=== PATIENT | male | born 1945 | race Caucasian/White ===

== ENCOUNTER 2017-08-22 16:29 | Emergency (ER) | payer MEDICARE, BC ==
--- NOTE | 2017-08-22 17:27 | EDM.PDOC ---
ED HPI GENERAL MEDICAL PROBLEM - General Chief Complaint: Cardiovascular Problem Stated Complaint: BLOOD PRESSURE HIGH Time Seen by Provider: 08/22/17 16:36 Source of Information: Reports: Patient History Limitations: Reports: No Limitations - History of Present Illness INITIAL COMMENTS - FREE TEXT/NARRATIVE: 72 y/o M with hx HTN and a-fib presents with high BP. States it was high at his cardiology appointment about 5 days ago, was 160's systolic at that time. His provider instructed him to keep a log and call her for medication adjustments if it continued to be high. Today had a reading of 200 systolic and was concerned so came here. No additional symptoms. Compliant with his many meds, which include diltiazem, HCTZ, doxazosin, and lisinopril. No recent changes. no chest pain, shortness of breath, lower extremity swelling, urinary problems, or any other complaint. No headache or confusion or weakness. - Related Data Allergies Allergy/AdvReac Type Severity Reaction Status Date / Time metronidazole [From Flagyl] Allergy Cannot Verified 08/22/17 16:54 Remember fosinopril sodium AdvReac Cough Verified 08/22/17 16:54 [From Monopril] Home Meds: Home Meds Cholecalciferol (Vitamin D3) [Vitamin D3] 1,000 unit PO DAILY 06/26/14 [History] Doxazosin Mesylate [Cardura] 1 mg PO BEDTIME 06/26/14 [History] Hydrochlorothiazide 25 mg PO DAILY 06/26/14 [History] Lisinopril 20 mg PO BID 06/26/14 [History] Lutein 6 mg PO DAILY 06/26/14 [History] Warfarin [Coumadin] 10 mg PO SUTUWETHSA 06/26/14 [History] Warfarin [Coumadin] 15 mg PO MOFR 06/26/14 [History] atorvaSTATin [Lipitor] 40 mg PO BEDTIME 06/26/14 [History] metFORMIN HCl [Metformin HCl ER] 1,000 mg PO BID 06/26/14 [History] Diltiazem HCl [Cardizem] 120 mg PO DAILY 04/30/15 [History] Past Medical History Other HEENT History: glasses Cardiovascular History: Reports: High Cholesterol, Hypertension Other Cardiovascular History: left leg edema, cardiac cath Respiratory History: Reports: Sleep Apnea Other Genitourinary History: proteinuria, hyperuricemia, BPH Other Hematologic History: belkis positive - Past Surgical History Other GI Surgeries/Procedures: colon polyps Other Male Surgeries/Procedures: cystoscopy Social & Family History - Tobacco Use Smoking Status *Q: Unknown Ever Smoked Years of Tobacco use: 13 Used Tobacco, but Quit: Yes Month/Year Tobacco Last Used: 30 years ago - Alcohol Use Days Per Week of Alcohol Use: 7 Number of Drinks Per Day: 2 Total Drinks Per Week: 14 - Recreational Drug Use Recreational Drug Use: No Drug Use in Last 12 Months: No ED ROS GENERAL - Review of Systems Review Of Systems: See Below Constitutional: Denies: Fever Respiratory: Denies: Shortness of Breath Cardiovascular: Denies: Chest Pain GI/Abdominal: Denies: Abdominal Pain Neurological: Denies: Confusion, Headache ED EXAM, GENERAL - Physical Exam Exam: See Below Exam Limited By: No Limitations General Appearance: Alert, WD/WN, No Apparent Distress Eye Exam: Bilateral Eye: Normal Inspection Nose: Normal Inspection Throat/Mouth: Normal Inspection, Normal Voice Head: Atraumatic, Normocephalic Neck: Normal Inspection, Supple Respiratory/Chest: No Respiratory Distress, Lungs Clear, Normal Breath Sounds, No Accessory Muscle Use Cardiovascular: Normal Peripheral Pulses, No Edema, No Gallop, No Murmur, Irregularly Irregular GI/Abdominal: Soft, Non-Tender, No Distention Back Exam: Normal Inspection Extremities: Normal Inspection. No: Pedal Edema Neurological: Alert, Oriented, Normal Cognition, No Motor/Sensory Deficits Psychiatric: Normal Affect, Normal Mood Skin Exam: Warm, Dry, Intact, Normal Color, No Rash Course - Vital Signs Last Recorded V/S: Last Vital Signs Temp 35.8 C 08/22/17 16:54 Pulse 50 L 08/22/17 16:54 Resp 20 08/22/17 16:54 BP 208/97 H 08/22/17 16:54 Pulse Ox 97 08/22/17 16:54 - Orders/Labs/Meds Orders: Active Orders 24 hr Category Date Time Status EKG Documentation Completion [RC] ASDIRECTED Care 08/22/17 17:10 Active EKG 12 Lead [EK] Stat Ther 08/22/17 17:10 Ordered - Re-Assessments/Exams Free Text/Narrative Re-Assessment/Exam: 08/22/17 17:50 Asymptomatic HTN detected on home monitoring, confirmed here with SBP 190-200' s. Already on 4 meds. Has room to increase doxazosin so will increase this to 2 mg. Advised him to call his tea blender in the morning for further medication adjustments. Discussed return precautions. Departure - Departure Time of Disposition: 17:26 Disposition: Home, Self-Care 01 Clinical Impression: Hypertension Qualifiers: Hypertension type: unspecified Qualified Code(s): I10 - Essential (primary) hypertension Instructions: Hypertension Referrals: Tabatha Rivera MD [Primary Care Provider] - Forms: ED Department Discharge Additional Instructions: 1. Increase doxazosin to 2mg daily. 2. Follow up with your tea blender tomorrow for further medication recommendations 3. Return to the ED if you have: - chest pain - difficult breathing - severe headache - confusion or weakness - any other concerning symptoms - My Orders Last 24 Hours: My Active Orders 08/22/17 17:10 EKG Documentation Completion [RC] ASDIRECTED EKG 12 Lead [EK] Stat - Assessment/Plan Last 24 Hours: My Active Orders 08/22/17 17:10 EKG Documentation Completion [RC] ASDIRECTED EKG 12 Lead [EK] Stat
[2017-08-22 17:51] VITALS: BP 151/85
== END 2017-08-22 17:35 | disposition home or self-care (01) ==
LOC: JD.ED 16:29
DX: I10 Essential (primary) hypertension (principal); I48.91 Unspecified atrial fibrillation; E78.00 Pure hypercholesterolemia, unspecified; Z87.891 Personal history of nicotine dependence; Z79.01 Long term (current) use of anticoagulants; Z79.899 Other long term (current) drug therapy; Z88.1 Allergy status to other antibiotic agents; Z88.8 Allergy status to other drugs, medicaments and biological substances
CPT/HCPCS: 93005; 93010; 99283-25; 99284-25

== ENCOUNTER 2018-01-25 06:47 | Day surgery (SDC) | payer MEDICARE, BC ==
[~2018-01-25 06:47] MED LIST: Lactated Ringers 1,000 ML IV SCH; Lidocaine 1%/Sod Bicarbonate in NS 8.4% 1 ML Syringe IDERM PRN; Sodium Chloride 0.9% 10 ML Syringe FLUSH PRN
--- NOTE | 2018-01-25 07:38 | PCM.PREANE ---
Preanesthetic Assessment - Procedure Proposed Procedure: Diagnostic EGD/Colonoscopy - Anesthesia/Transfusion/Family Hx Anesthesia History: Prior Anesthesia Without Reaction Family History of Anesthesia Reaction: No Transfusion History: Prior Transfusion Without Reaction - Review of Systems General: No Symptoms Pulmonary: Shortness of Breath (when hemaglobin was 6.8, ), Other (MARIANGEL with CPAP ) Cardiovascular: Other (Afib on chronic anticoagulation , Aortic stenosis, HTN, EF 55-60%, cardiac stent 2010, ) Neurological: No Symptoms Other: Reports: Easy Bleeding (on coumadin ), Easy Bruising, Diabetes (on oral medication ) - Physical Assessment NPO Status Date: 01/24/18 NPO Status Time: 23:30 O2 Sat by Pulse Oximetry: 98 Respiratory Rate: 20 Vital Signs: Last Vital Signs Temp 36.7 C 01/25/18 06:55 Pulse 70 01/25/18 06:55 Resp 20 01/25/18 06:55 BP 164/73 H 01/25/18 06:55 Pulse Ox 98 01/25/18 06:55 Height: 1.73 m Weight: 121.109 kg ASA Class: 2 Mental Status: Alert & Oriented x3 Airway Class: Mallampati = 3 Dentition: Reports: Broken Tooth/Teeth (has a few chipped and missing teeth ) Thyro-Mental Finger Breadths: 3 Mouth Opening Finger Breadths: 3 ROM/Head Extension: Full Lungs: Clear to Auscultation, Normal Respiratory Effort Cardiovascular: Regular Rate, Irregular Rhythm, Murmurs - Allergies Allergies/Adverse Reactions: Allergies Allergy/AdvReac Type Severity Reaction Status Date / Time metronidazole [From Flagyl] Allergy Cannot Verified 01/24/18 14:56 Remember fosinopril sodium AdvReac Cough Verified 01/24/18 14:56 [From Monopril] - Blood Blood Available: No Product(s) Available: None - Anesthesia Plan Pre-Op Medication Ordered: None - Acknowledgements Anesthesia Type Planned: MAC Pt an Appropriate Candidate for the Planned Anesthesia: Yes Alternatives and Risks of Anesthesia Discussed w Pt/Guardian: Yes Pt/Guardian Understands and Agrees with Anesthesia Plan: Yes PreAnesthesia Questionnaire HEENT History: Reports: Impaired Vision Other HEENT History: glasses Cardiovascular History: Reports: Afib, High Cholesterol, Hypertension Other Cardiovascular History: aortic stenosis, stenosis Respiratory History: Reports: Sleep Apnea Gastrointestinal History: Reports: Colon Polyp Other Genitourinary History: proteinuria, hyperuricemia, BPH GRIP WRAPPER History: Reports: None Musculoskeletal History: Reports: None Neurological History: Reports: None Psychiatric History: Reports: None Endocrine/Metabolic History: Reports: Diabetes, Type II, Obesity/BMI 30+ Hematologic History: Reports: Anemia, Iron Deficiency Other Hematologic History: belkis positive Immunologic History: Reports: None Oncologic (Cancer) History: Reports: None Dermatologic History: Reports: None - Past Surgical History Head Surgeries/Procedures: Reports: None HEENT Surgical History: Reports: Cataract Surgery Cardiovascular Surgical History: Reports: None Respiratory Surgical History: Reports: None GI Surgical History: Reports: Colonoscopy Other GI Surgeries/Procedures: colon polyps Male Surgical History: Reports: Other (See Below) Other Male Surgeries/Procedures: cystoscopy Endocrine Surgical History: Reports: None Neurological Surgical History: Reports: None Musculoskeletal Surgical History: Reports: None Oncologic Surgical History: Reports: None Dermatological Surgical History: Reports: None - SUBSTANCE USE Smoking Status *Q: Former Smoker (quit 41 years ago) Days Per Week of Alcohol Use: 7 Number of Drinks Per Day: 2 Total Drinks Per Week: 14 Recreational Drug Use History: No - HOME MEDS Home Medications: Home Meds Cholecalciferol (Vitamin D3) [Vitamin D3] 1,000 unit PO DAILY 06/26/14 [History] Doxazosin Mesylate [Cardura] 4 mg PO DAILY 06/26/14 [History] Lisinopril 20 mg PO BID 06/26/14 [History] Lutein 6 mg PO DAILY 06/26/14 [History] Warfarin [Coumadin] 7.5 mg PO FR 06/26/14 [History] Warfarin [Coumadin] 10 mg PO SUMOTUWETHSA 06/26/14 [History] atorvaSTATin [Lipitor] 40 mg PO BEDTIME 06/26/14 [History] hydroCHLOROthiazide [Hydrochlorothiazide] 25 mg PO DAILY 06/26/14 [History] metFORMIN HCl [Metformin HCl ER] 1,000 mg PO BID 06/26/14 [History] Diltiazem HCl [Cardizem] 240 mg PO DAILY 04/30/15 [History] - CURRENT (IN HOUSE) MEDS Current Meds: Current Medications Lactated Ringer's (Ringers, Lactated) 1,000 mls @ 125 mls/hr IV ASDIRECTED [facility] Last Admin: 01/25/18 07:10 Dose: 125 mls/hr Lidocaine/Sodium Bicarbonate (Buffered Lidocaine 1% In Ns 8.4%) 0.25 ml IDERM ONETIME PRN PRN Reason: Prior to IV Start Last Admin: 01/25/18 07:10 Dose: 0.25 ml Sodium Chloride (Saline Flush) 10 ml FLUSH ASDIRECTED PRN PRN Reason: Keep Vein Open
[2018-01-25] MEDS ORDERED: Propofol 200 MG/20 ML SDV ONE (08:09)
[2018-01-25] MEDS ORDERED: fentaNYL 100 MCG/2 ML SDV ONE (08:09)
[2018-01-25] MEDS ORDERED: Lidocaine 1% 4 ML ONE (08:11)
--- NOTE | 2018-01-25 08:51 | PCM.OPNOTE ---
- General Post-Op/Procedure Note Date of Surgery/Procedure: 01/25/18 Operative Procedure(s): egd/colonoscopy Pre Op Diagnosis: iron deficiency anemia Post-Op Diagnosis: Same Anesthesia Technique: MAC Primary Surgeon: Kilo Haq EBL in mLs: 0 Complications: None Condition: Good
--- NOTE | 2018-01-25 08:52 | PCM48HPAN ---
Post Anesthesia Note - EVALUATION WITHIN 48HRS OF ANESTHETIC Vital Signs in Normal Range: Yes Patient Participated in Evaluation: Yes Respiratory Function Stable: Yes Airway Patent: Yes Cardiovascular Function Stable: Yes Hydration Status Stable: Yes Pain Control Satisfactory: Yes Nausea and Vomiting Control Satisfactory: Yes Mental Status Recovered: Yes Pulse Rate: 84 SaO2: 96 Resp Rate: 20 Temperature: 36.7 C Blood Pressure: 158/95
[2018-01-25 08:53] VITALS: BP 158/95
--- NOTE | 2018-01-25 12:54 | OR ---
DATE OF OPERATION: 01/25/2018 SURGEON: Kilo Haq MD PREOPERATIVE DIAGNOSIS: Iron deficiency anemia. POSTOPERATIVE DIAGNOSIS: Iron deficiency anemia. OPERATION PERFORMED: Colonoscopy to cecum. FINDINGS: Normal study. No recommendations for followup colonoscopy. ANESTHESIA: Done under IV sedation. DESCRIPTION OF PROCEDURE: The patient having been taken to the endoscopy room, connected to monitoring equipment, and given IV sedation for upper GI endoscopy, IV sedation was continued for colonoscopy. He was placed in left lateral position. Perianal area was inspected and showed some old hemorrhoidal tags. Examination of the anal area did not show any pathology. Rectal exam showed good sphincter tone. A video Olympus colonoscope was introduced into the rectum and threaded up without problem to the cecum, where the appendicular orifice was noted. The ileum was noted, and the tip of the scope was placed in the ileum and was normal. Prep was excellent. [place] cleansing score grade A. The scope was slowly withdrawn showing the cecum, ascending colon, transverse colon, descending colon, sigmoid colon, and rectum. Retroflexed view did show some internal hemorrhoids. There were no angiodysplasias, neoplasias, large tumor masses, ulcerations, or diverticulum noted. The patient tolerated the procedure, was sent to recovery room in a stable condition, and will be followed up with Dr. Rivera. ESTIMATED BLOOD LOSS: MMODAL /[id number]
--- NOTE | 2018-01-25 12:58 | OR ---
DATE OF OPERATION: 01/25/2018 SURGEON: Kilo Haq MD PREOPERATIVE DIAGNOSIS: Iron deficiency anemia. POSTOPERATIVE DIAGNOSIS: Iron deficiency anemia. OPERATION PERFORMED: Esophagogastroduodenoscopy. FINDINGS: A normal study. ANESTHESIA: Procedure done under IV sedation. DESCRIPTION OF PROCEDURE: The patient was taken to the endoscopy room, connected to monitoring equipment, given IV sedation, and placed in left lateral position. Bite block was inserted and video Olympus gastroscope placed in the posterior oropharynx, under direct vision, threaded past the cricopharyngeus, down the esophagus and into the stomach. The stomach was insufflated, and the scope was passed through the pylorus to the second portion of the duodenum, and it was slowly withdrawn showing a normal second portion of the duodenum, duodenal bulb, and pyloric channel. Antrum, body, and cardia of the stomach were unremarkable. No acute disease. J-maneuver showed good fundus and cardia. Hiatus was intact. GE junction was located at 45 cm. Scope was withdrawn to this area and viewed, and no acute pathology noted at the GE junction. Z-line was sharp. Rest of the esophagus was viewed as the scope was withdrawn and was normal. The patient tolerated the procedure. IV sedation will be continued for colonoscopy. ESTIMATED BLOOD LOSS: MMODAL /[id number]
== END 2018-01-25 09:20 | disposition home or self-care (01) ==
LOC: JD.SDS 06:47
PROVIDERS: ATTEND Surgery
DX: D50.9 Iron deficiency anemia, unspecified (principal); K64.8 Other hemorrhoids; I48.1 Persistent atrial fibrillation; I10 Essential (primary) hypertension; I35.0 Nonrheumatic aortic (valve) stenosis; E11.9 Type 2 diabetes mellitus without complications; E78.5 Hyperlipidemia, unspecified; E78.2 Mixed hyperlipidemia; E66.01 Morbid (severe) obesity due to excess calories; Z68.41 Body mass index [BMI] 40.0-44.9, adult; R80.9 Proteinuria, unspecified; Z79.01 Long term (current) use of anticoagulants; Z79.84 Long term (current) use of oral hypoglycemic drugs; Z79.899 Other long term (current) drug therapy; Z88.1 Allergy status to other antibiotic agents; Z88.8 Allergy status to other drugs, medicaments and biological substances; Z98.890 Other specified postprocedural states; Z87.891 Personal history of nicotine dependence; G47.30 Sleep apnea, unspecified
CPT/HCPCS: 36415; 43235; 45378; 80048; 85610; J2704; J3010; J7120; J2001

== ENCOUNTER 2018-02-05 11:03 | Emergency (ER) | payer MEDICARE, BC ==
--- NOTE | 2018-02-05 11:45 | EDM.PDOC ---
ED HPI GENERAL MEDICAL PROBLEM - General Chief Complaint: Lower Extremity Injury/Pain Stated Complaint: L ANKLE INJURY Time Seen by Provider: 02/05/18 11:24 Source of Information: Reports: Patient History Limitations: Reports: No Limitations - History of Present Illness INITIAL COMMENTS - FREE TEXT/NARRATIVE: Patient is a 72-year-old male presents ED complaining of swelling and pain to the left foot and ankle. Patient states this past Monday while working in the garden he believes he may twisted his ankle/foot. States with weightbearing he had increasing pain along the sole of his foot. He did apply ice to the affected area that has since improved to discomfort but the swelling remains. He still has discomfort with weightbearing and utilizes a walker to ambulate. He does have a history of diabetes but denies any history of neuropathy. He has not taken any ibuprofen or Tylenol for discomfort. Nor has he been elevating the affected extremity to reduce any swelling and pain. No pain noted to the proximal tib/fib and also knee. He did not fall when this occurred. Patient is a history of age or fibrillation, hypercholesterolemia, hypertension , aortic stenosis, sleep apnea, BPH, type 2 diabetes, anemia. Patient's currently on vitamin D3, Cardura, lisinopril, Lipitor, hydrochlorothiazide, metformin, and diltiazem Left Ankle Pain Score (Numeric/FACES): 8 - Related Data Allergies Allergy/AdvReac Type Severity Reaction Status Date / Time metronidazole [From Flagyl] Allergy Cannot Verified 02/05/18 11:22 Remember fosinopril sodium AdvReac Cough Verified 02/05/18 11:22 [From Monopril] Home Meds: Home Meds Cholecalciferol (Vitamin D3) [Vitamin D3] 1,000 unit PO DAILY 06/26/14 [History] Doxazosin Mesylate [Cardura] 4 mg PO DAILY 06/26/14 [History] Lisinopril 20 mg PO BID 06/26/14 [History] Lutein 6 mg PO DAILY 06/26/14 [History] Warfarin [Coumadin] 10 mg PO DAILY 06/26/14 [History] atorvaSTATin [Lipitor] 40 mg PO BEDTIME 06/26/14 [History] hydroCHLOROthiazide [Hydrochlorothiazide] 25 mg PO DAILY 06/26/14 [History] metFORMIN HCl [Metformin HCl ER] 1,000 mg PO BID 06/26/14 [History] Diltiazem HCl [Cardizem] 240 mg PO DAILY 04/30/15 [History] Past Medical History HEENT History: Reports: Impaired Vision Other HEENT History: glasses Cardiovascular History: Reports: Afib, High Cholesterol, Hypertension Other Cardiovascular History: aortic stenosis, stenosis Respiratory History: Reports: Sleep Apnea Gastrointestinal History: Reports: Colon Polyp Other Genitourinary History: proteinuria, hyperuricemia, BPH CATTLE KNOCKER History: Reports: None Musculoskeletal History: Reports: None Neurological History: Reports: None Psychiatric History: Reports: None Endocrine/Metabolic History: Reports: Diabetes, Type II, Obesity/BMI 30+ Hematologic History: Reports: Anemia, Iron Deficiency Other Hematologic History: belkis positive Immunologic History: Reports: None Oncologic (Cancer) History: Reports: None Dermatologic History: Reports: None - Past Surgical History Head Surgeries/Procedures: Reports: None HEENT Surgical History: Reports: Cataract Surgery Cardiovascular Surgical History: Reports: None Respiratory Surgical History: Reports: None GI Surgical History: Reports: Colonoscopy Other GI Surgeries/Procedures: colon polyps Male Surgical History: Reports: Other (See Below) Other Male Surgeries/Procedures: cystoscopy Endocrine Surgical History: Reports: None Neurological Surgical History: Reports: None Musculoskeletal Surgical History: Reports: None Oncologic Surgical History: Reports: None Dermatological Surgical History: Reports: None Social & Family History - Tobacco Use Smoking Status *Q: Never Smoker - Caffeine Use Caffeine Use: Reports: Coffee Other Caffeine Use: decaf - Recreational Drug Use Recreational Drug Use: No Review of Systems - Review of Systems Review Of Systems: ROS reveals no pertinent complaints other than HPI. ED EXAM, GENERAL - Physical Exam Exam: See Below Exam Limited By: No Limitations General Appearance: Alert, WD/WN, No Apparent Distress Ears: Hearing Grossly Normal Nose: Normal Inspection Throat/Mouth: Normal Voice, No Airway Compromise Neck: Normal Inspection, Supple Respiratory/Chest: No Respiratory Distress, No Accessory Muscle Use Cardiovascular: Normal Peripheral Pulses, Regular Rate, Rhythm Peripheral Pulses: 1+: Posterior Tibial (L), Dorsalis Pedis (L) Extremities: Other (Patient has swelling noted to the dorsal aspect of left foot and also medial/lateral aspect of the ankle. Pain with palpation along the base of the left lateral malleolus and along the fourth and fifth metatarsal. Patient did have a compression wrap on it with admission removed with some slight irritation noted along the medial aspect of the foot and also along the anterior distal third of the tibia from where the compression stocking was rubbing. No findings concerning for infection. No increased warmth. No open sores present. No sensory/motor deficits. Patient with ambulation in the ED was able to weight-bear with discomfort noted) Neurological: Alert, Oriented, CN II-XII Intact, Normal Cognition, No Motor/ Sensory Deficits. No: Normal Gait Psychiatric: Normal Affect, Normal Mood Skin Exam: Warm, Dry, Intact Course - Vital Signs Last Recorded V/S: Last Vital Signs Temp 98.5 F 02/05/18 11:18 Pulse 81 02/05/18 11:18 Resp 18 02/05/18 11:18 BP 165/92 H 02/05/18 11:18 Pulse Ox 98 02/05/18 11:18 - Re-Assessments/Exams Free Text/Narrative Re-Assessment/Exam: X-ray of the left ankle and foot obtained. Xray of the left foot/ankle reviewed with Dr. Amato with questionable fracture to the base of the 3rd metatarsal. Suggested having Dr. Kirk provide final interpretation. Final interpretation: No acute bony abdomen abnormalities noted to the left foot and ankle. Walking boot has been applied. Discharge instructions as documented. The patient remained hemodynamically stable while under my care in the E.D. I discussed the concerning symptoms for which to return to the E.D. with the patient/family. The patient/family verbalized understanding. All questions were answered. Departure - Departure Time of Disposition: 13:07 Disposition: Home, Self-Care 01 Condition: Good Clinical Impression: Ankle sprain Qualifiers: Encounter type: initial encounter Involved ligament of ankle: unspecified ligament Laterality: left Qualified Code(s): S93.402A - Sprain of unspecified ligament of left ankle, initial encounter Sprain of foot, left Qualifiers: Encounter type: initial encounter Qualified Code(s): S93.602A - Unspecified sprain of left foot, initial encounter - Discharge Information Instructions: Ankle Sprain, [id number], Foot Sprain, Walking Boot, Adult Referrals: Tabatha Rivera MD [Primary Care Provider] - Forms: ED Department Discharge Additional Instructions: You are to be nonweightbearing toe-touch only for balance in the next 3-5 days. Advance weight as tolerated thereafter. Utilize crutches or walker to ambulate. Elevate when able to reduce any swelling and pain. Apply ice to affected area to reduce any swelling and pain 3 times a day, 20 minutes in duration, do not apply ice directly on the skin. Please follow up with orthopedic surgeon of your choice in 10-14 days if swelling and pain persists. Call and make an appointment. Return to the ED if he developed any new or worsening symptoms. Utilize Tylenol and ibuprofen in alternating fashion for pain.
--- NOTE | 2018-02-05 12:55 | CR ---
Left ankle: 4 views of the left ankle were obtained. Comparison: No previous study. Diffuse soft tissue swelling is seen. Plantar spur and vascular calcification is noted. Ankle mortise is symmetric. No acute fracture or other bony abnormality is seen. Impression: 1. Incidental findings as noted above. No acute bony abnormality is appreciated. Diagnostic code #3
--- NOTE | 2018-02-05 12:56 | CR ---
Left foot: 4 views left foot were obtained. Comparison: No previous day. Diffuse soft tissue swelling is seen. Plantar spur and vascular calcification is noted. No acute fracture or other bony abnormality is seen. Impression: 1. Findings as noted above. No acute bony abnormality is identified. Diagnostic code #2
[2018-02-05 13:19] VITALS: BP 148/74
== END 2018-02-05 13:15 | disposition home or self-care (01) ==
LOC: JD.ED 11:03
DX: S93.402A Sprain of unspecified ligament of left ankle, initial encounter (principal); S93.602A Unspecified sprain of left foot, initial encounter; E11.9 Type 2 diabetes mellitus without complications; I48.91 Unspecified atrial fibrillation; E78.00 Pure hypercholesterolemia, unspecified; I10 Essential (primary) hypertension; D50.9 Iron deficiency anemia, unspecified; Z79.899 Other long term (current) drug therapy; Z79.01 Long term (current) use of anticoagulants; Z88.8 Allergy status to other drugs, medicaments and biological substances; X50.1XXA Overexertion from prolonged static or awkward postures, initial encounter
CPT/HCPCS: 73610-26-LT; 73610-LT; 73630-26-LT; 73630-LT; 99283; 99284

== ENCOUNTER 2019-06-30 10:18 | Emergency (ER) | payer MEDICARE, BC ==
[2019-06-30 10:30] VITALS: BP 162/81; PULSE 63
--- NOTE | 2019-06-30 10:43 | EDM.PDOC ---
ED HPI GENERAL MEDICAL PROBLEM - General Chief Complaint: Lower Extremity Injury/Pain Stated Complaint: RIGHT KNEE PAIN Time Seen by Provider: 06/30/19 10:30 Source of Information: Reports: Patient History Limitations: Reports: No Limitations - History of Present Illness INITIAL COMMENTS - FREE TEXT/NARRATIVE: A 73-year-old male who presents with complaints of right knee pain and swelling for the last week. He has no known injury to the knee. He states the pain has been getting progressively worse. Initially the pain was only present when he would go from a sitting to standing position, however it is now consistently painful. Patient does have a history of gout, however states his last flare was probably about 20 years ago. When asked to localize the pain, he points to the anterior surface below the kneecap. Denies fever, chills, nausea, or vomiting. Right Knee Pain Score (Numeric/FACES): 10 - Related Data Allergies Allergy/AdvReac Type Severity Reaction Status Date / Time metronidazole [From Flagyl] Allergy Cannot Verified 06/30/19 10:30 Remember fosinopril sodium AdvReac Cough Verified 06/30/19 10:30 [From Monopril] Home Meds: Home Meds Cholecalciferol (Vitamin D3) [Vitamin D3] 1,000 unit PO DAILY 06/26/14 [History] Doxazosin Mesylate [Cardura] 4 mg PO DAILY 06/26/14 [History] Lisinopril 20 mg PO BID 06/26/14 [History] Lutein 20 mg PO DAILY 06/26/14 [History] Warfarin [Coumadin] 10 mg PO DAILY 06/26/14 [History] atorvaSTATin [Lipitor] 40 mg PO BEDTIME 06/26/14 [History] Diltiazem HCl [Cardizem] 240 mg PO DAILY 04/30/15 [History] Ferrous Sulfate [High Potency Iron] 134 mg PO DAILY 06/30/19 [History] Furosemide [Lasix] 20 mg PO DAILY 06/30/19 [History] glipiZIDE [Glucotrol XL] 5 mg PO DAILY 06/30/19 [History] predniSONE [Prednisone] 20 mg PO ASDIRECTED #14 tablet 06/30/19 [Rx] Past Medical History HEENT History: Reports: Impaired Vision Other HEENT History: glasses Cardiovascular History: Reports: Afib, High Cholesterol, Hypertension Other Cardiovascular History: aortic stenosis, stenosis Respiratory History: Reports: Sleep Apnea Gastrointestinal History: Reports: Colon Polyp Other Genitourinary History: proteinuria, hyperuricemia, BPH PRIVATE INVESTIGATOR SURVEILLANCE History: Reports: None Musculoskeletal History: Reports: Gout Neurological History: Reports: None Psychiatric History: Reports: None Endocrine/Metabolic History: Reports: Diabetes, Type II, Obesity/BMI 30+ Hematologic History: Reports: Anemia, Iron Deficiency Other Hematologic History: belkis positive Immunologic History: Reports: None Oncologic (Cancer) History: Reports: None Dermatologic History: Reports: None - Past Surgical History Head Surgeries/Procedures: Reports: None HEENT Surgical History: Reports: Cataract Surgery Cardiovascular Surgical History: Reports: None Respiratory Surgical History: Reports: None GI Surgical History: Reports: Colonoscopy Other GI Surgeries/Procedures: colon polyps Male Surgical History: Reports: Other (See Below) Other Male Surgeries/Procedures: cystoscopy Endocrine Surgical History: Reports: None Neurological Surgical History: Reports: None Musculoskeletal Surgical History: Reports: None Oncologic Surgical History: Reports: None Dermatological Surgical History: Reports: None Social & Family History - Tobacco Use Smoking Status *Q: Former Smoker Used Tobacco, but Quit: Yes Month/Year Tobacco Last Used: 1986 - Caffeine Use Caffeine Use: Reports: Coffee Other Caffeine Use: decaf Review of Systems - Review of Systems Review Of Systems: Comprehensive ROS is negative, except as noted in HPI. ED EXAM, GENERAL - Physical Exam Exam: See Below Exam Limited By: No Limitations General Appearance: Alert, WD/WN, No Apparent Distress Respiratory/Chest: No Respiratory Distress, Lungs Clear, Normal Breath Sounds, No Accessory Muscle Use, Chest Non-Tender Cardiovascular: Normal Peripheral Pulses, Regular Rate, Rhythm, No Edema, No Gallop, No JVD, No Murmur, No Rub Extremities: Joint Swelling (Right knee), Increased Warmth (Right knee), Other ( Generalized tenderness throughout the right knee. Tenderness is worse directly below the right knee.) Neurological: Alert, Oriented, CN II-XII Intact, Normal Cognition, Normal Gait, Normal Reflexes, No Motor/Sensory Deficits Psychiatric: Normal Affect, Normal Mood Skin Exam: Warm, Dry, Intact, Normal Color, No Rash Course - Vital Signs Last Recorded V/S: Last Vital Signs Temp 97.9 F 06/30/19 10:26 Pulse 63 06/30/19 10:26 Resp 20 06/30/19 10:26 BP 162/81 H 06/30/19 10:26 Pulse Ox 97 06/30/19 10:26 - Orders/Labs/Meds Meds: Medications Discontinued Medications Generic Name Dose Route Start Last Admin Trade Name Lora PRPaige Reason Stop Dose Admin Prednisone 20 mg 06/30/19 11:10 06/30/19 11:24 Prednisone PO 06/30/19 11:11 20 mg ONETIME ONE Administration - Re-Assessments/Exams Free Text/Narrative Re-Assessment/Exam: On exam, the right knee is visibly swollen and warm to touch. I have ordered a an x-ray of the right knee. 06/30/19 11:05 X-ray of right knee showed no acute findings. Patient is likely experiencing a gout flare. We'll treat with prednisone as patient is on Coumadin and NSAIDs would not be appropriate for him. I did recommend that he call to schedule appointment with his primary care provider, Dr. Rivera, [place] [facility] [place] to ensure that his symptoms are improving. Discharge instructions as noted. Departure - Departure Time of Disposition: 11:06 Disposition: Home, Self-Care 01 Condition: Fair Clinical Impression: Gout attack Qualifiers: Gout site: knee Gout etiology: unspecified cause Laterality: right Qualified Code(s): M10.9 - Gout, unspecified - Discharge Information *PRESCRIPTION DRUG MONITORING PROGRAM REVIEWED*: No *COPY OF PRESCRIPTION DRUG MONITORING REPORT IN PATIENT JAQUELINE: No Prescriptions: predniSONE [Prednisone] 20 mg PO ASDIRECTED #14 tablet Instructions: Gout, [id number] Referrals: Tabatha Rivera MD [Primary Care Provider] - Forms: ED Department Discharge Additional Instructions: You were seen in the emergency department today for pain and swelling to your right knee. X-rays were done and show no acute injury. It is likely that you are suffering from a gout flare. A prescription for prednisone has been sent to [facility]. Take this medication as prescribed. You may also ice the area as needed and use Tylenol [id number] as needed for pain. I recommend that you call to schedule a follow-up appointment with your primary care provider around Monday of this week to ensure that your symptoms are improving. If you should experience any new or worsening symptoms, please do not hesitate to return to the emergency department. Sepsis Event Note - Evaluation Sepsis Screening Result: No Definite Risk - Focused Exam Vital Signs: Vital Signs Temp Pulse Resp BP Pulse Ox 06/30/19 10:26 97.9 F 63 20 162/81 H 97 Date Exam was Performed: 06/30/19 Time Exam was Performed: 14:21
[2019-06-30] MEDS ORDERED: predniSONE 20 MG Tab PO ONE (11:10)
--- NOTE | 2019-06-30 11:27 | CR ---
Right knee: 4 views of the right knee were obtained. Comparison: No previous right knee exam. Vascular calcification is noted. Joint effusion is seen. Small osteophytes are seen off the patella. No acute fracture or dislocation is appreciated. Impression: 1. Joint effusion. Other findings as noted above. 2. No acute bony abnormality is identified. Diagnostic code #3 This report was dictated in [place] Standard Time
== END 2019-06-30 11:25 | disposition home or self-care (01) ==
LOC: JD.ED 10:18
DX: M10.9 Gout, unspecified (principal); I10 Essential (primary) hypertension; E78.00 Pure hypercholesterolemia, unspecified; I48.91 Unspecified atrial fibrillation; E11.9 Type 2 diabetes mellitus without complications; E66.9 Obesity, unspecified; Z87.891 Personal history of nicotine dependence; Z79.01 Long term (current) use of anticoagulants; Z79.899 Other long term (current) drug therapy; Z79.84 Long term (current) use of oral hypoglycemic drugs; Z88.8 Allergy status to other drugs, medicaments and biological substances; Z68.41 Body mass index [BMI] 40.0-44.9, adult
CPT/HCPCS: 73564; 99283; A9270

== ENCOUNTER 2019-07-11 10:33 | Emergency (ER) | payer MEDICARE, BC ==
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
[2019-07-11 12:26] VITALS: BP 143/67; PULSE 60
--- NOTE | 2019-07-11 18:10 | CR ---
Chest and right ribs: Frontal view of the chest was obtained as well as 3 views the right ribs. Comparison: No previous chest or rib exam. Findings: Heart size at the upper limits of normal. No acute parenchymal process is appreciated. No discrete fracture or other bony abnormality is seen. Mild degenerative endplate spurring is noted within the spine. Impression: 1. Nothing acute seen on frontal chest x-ray. 2. No discrete right-sided rib abnormality is seen. Nondisplaced rib fracture could easily be missed. Diagnostic code #2 Study was dictated in [place] Standard Time
== END 2019-07-11 12:23 | disposition home or self-care (01) ==
LOC: JD.ED 10:33
DX: S20.219A Contusion of unspecified front wall of thorax, initial encounter (principal); I48.91 Unspecified atrial fibrillation; E78.00 Pure hypercholesterolemia, unspecified; I10 Essential (primary) hypertension; N40.0 Benign prostatic hyperplasia without lower urinary tract symptoms; E11.9 Type 2 diabetes mellitus without complications; D50.9 Iron deficiency anemia, unspecified; E66.9 Obesity, unspecified; Z68.41 Body mass index [BMI] 40.0-44.9, adult; Z88.8 Allergy status to other drugs, medicaments and biological substances; Z88.1 Allergy status to other antibiotic agents; Z79.899 Other long term (current) drug therapy; Z79.01 Long term (current) use of anticoagulants; Z79.84 Long term (current) use of oral hypoglycemic drugs; Z79.52 Long term (current) use of systemic steroids; Z87.891 Personal history of nicotine dependence; V47.5XXA Car driver injured in collision with fixed or stationary object in traffic accident, initial encounter; Y92.411 Interstate highway as the place of occurrence of the external cause
CPT/HCPCS: 36415; 71101-26-RT; 71101-RT; 85025; 85610; 99282; 99284-25

== ENCOUNTER 2020-05-09 22:47 | Emergency (ER) | payer MEDICARE, BC ==
[2020-05-09] MEDS ORDERED: Aspirin 81 MG Tab.Chew PO ONE (23:16)
[2020-05-09] MEDS ORDERED: Metoclopramide 10 MG/2 ML SDV IVPUSH ONE (23:18)
[2020-05-09] MEDS ORDERED: HYDROmorphone 0.5 MG/0.5 ML Syringe IVPUSH ONE (23:18)
--- NOTE | 2020-05-09 23:22 | EDM.PDOC ---
ED HPI GENERAL MEDICAL PROBLEM - General Chief Complaint: Chest Pain Stated Complaint: CHEST PAIN Time Seen by Provider: 05/09/20 23:16 Source of Information: Reports: Patient History Limitations: Reports: No Limitations - History of Present Illness INITIAL COMMENTS - FREE TEXT/NARRATIVE: 74-year-old male presents to the ED with diffuse central chest pressure discomfort radiating to the left upper extremity to below his left elbow. Pain came on approximately 2130 hrs. tonight and is persistent. He did try to go to bed and use his CPAP machine but he found it was not helping and he was unable to fall asleep. Suggest that he is a type II diabetic for greater than 15 years. He has been in atrial fibrillation since 2013 and is on Coumadin high dose 10 mg 5 days a week and 50 mg twice weekly. He has chronic dependent edema both lower extremities. The history suggest that he has been developing chest pain or of chest on minimal exertion for greater than 3 months. He reports over the last 3 weeks central chest pain comes on with less and less exertion. Usually if he stops moving around the pain will go away but not so tonight. He states today he was not doing anything exertional. No history of WA. He apparently did have an angiogram in 2013 and showed some degree of stenosis but not enough to require stenting. He is scheduled for a angiogram with Dr. Moura --mortgage underwriter at [facility] in [place] on May 15. Patient has associated shortness of breath. No diaphoresis. No nausea or vomiting. Rates the pain as a 6-7 out of 10. Pain is constant. No radiation to his back or neck. Onset: Today, Sudden Onset Date: 05/09/20 Onset Time: 21:30 Duration: Hour(s):, Constant Location: Reports: Chest (Chest squeezing chest discomfort radiating to the left upper extremity down to his elbow.), Upper Extremity, Left Quality: Reports: Ache, Other Severity: Moderate (Is a chest pressure heaviness.) Improves with: Reports: None ( Next a 7 out of 10.) Worsens with: Reports: Other Context: Reports: Other (History of unstable angina over the last several months. Scheduled for angiogram next Monday). Denies: Activity (Be a little worse on exertion.), Exercise, Lifting, Sick Contact, Trauma Associated Symptoms: Reports: Chest Pain, Cough, Loss of Appetite, Malaise (Cough.), Shortness of Breath. Denies: Confusion, cough w sputum, Diaphoresis, Fever/Chills, Headaches, Nausea/Vomiting, Rash, Seizure, Syncope, Weakness Treatments POLYMERIZATION OVEN TENDER: Reports: Other (see below) (Only his regular meds.) Chest Pain Score (Numeric/FACES): 5 - Related Data Allergies Allergy/AdvReac Type Severity Reaction Status Date / Time metronidazole [From Flagyl] Allergy Cannot Verified 06/30/19 10:30 Remember fosinopril sodium AdvReac Cough Verified 06/30/19 10:30 [From Monopril] Home Meds: Home Meds Cholecalciferol (Vitamin D3) [Vitamin D3] 1,000 unit PO DAILY 06/26/14 [History] Doxazosin Mesylate [Cardura] 4 mg PO DAILY 06/26/14 [History] Lisinopril 20 mg PO BID 06/26/14 [History] Lutein 10 mg PO DAILY 06/26/14 [History] Warfarin [Coumadin] 10 mg PO [id number] 06/26/14 [History] dilTIAZem HCL [Cardizem] 240 mg PO DAILY 04/30/15 [History] Ferrous Sulfate [High Potency Iron] 65 mg PO BID 06/30/19 [History] Furosemide [Lasix] 20 mg PO DAILY 06/30/19 [History] glipiZIDE [Glucotrol XL] 2.5 mg PO DAILY 06/30/19 [History] Allopurinol [Zyloprim] 300 mg PO DAILY 05/09/20 [History] Sodium Bicarbonate 650 mg PO BID 05/09/20 [History] Warfarin [Coumadin] 12.5 mg PO MOTH 05/09/20 [History] atorvaSTATin Calcium [Lipitor] 40 mg PO DAILY 05/09/20 [History] Past Medical History HEENT History: Reports: Impaired Vision Other HEENT History: glasses Cardiovascular History: Reports: Afib (Coumadin since 2013.), CAD, Heart Murmur, High Cholesterol, Hypertension, SOB on Exertion. Denies: WA (History.) Other Cardiovascular History: aortic stenosis. History suggest gradually worsening angina over the last several months. Since taking less and less exertion to bring on chest pain and rest usually makes it go away. No previous myocardial infarction. Chronic atrial fib since 2013. Respiratory History: Reports: COPD, Sleep Apnea (Is use CPAP at bedtime) Gastrointestinal History: Reports: Colon Polyp Other Genitourinary History: proteinuria, hyperuricemia, BPH MRI SPECIAL PROCEDURES TECHNOLOGIST History: Reports: None Musculoskeletal History: Reports: Gout Neurological History: Reports: None Psychiatric History: Reports: None Endocrine/Metabolic History: Reports: Diabetes, Type II (Zuri with diabetes mellitus for greater than 15 years. Always controlled with oral medications never used insulin.), Obesity/BMI 30+ Hematologic History: Reports: Anemia, Iron Deficiency Other Hematologic History: belkis positive Immunologic History: Reports: None Oncologic (Cancer) History: Reports: None Dermatologic History: Reports: None - Past Surgical History Head Surgeries/Procedures: Reports: None HEENT Surgical History: Reports: Cataract Surgery Cardiovascular Surgical History: Reports: None Respiratory Surgical History: Reports: None GI Surgical History: Reports: Colonoscopy Other GI Surgeries/Procedures: colon polyps Male Surgical History: Reports: Other (See Below) Other Male Surgeries/Procedures: cystoscopy Endocrine Surgical History: Reports: None Neurological Surgical History: Reports: None Musculoskeletal Surgical History: Reports: None Oncologic Surgical History: Reports: None Dermatological Surgical History: Reports: None Social & Family History - Tobacco Use Tobacco Use Status *Q: Former Tobacco User Tobacco Use Within Last Twelve Months: Cigarettes (At age 31.) Used Tobacco, but Quit: Yes Month/Year Tobacco Last Used: 1976 - Caffeine Use Caffeine Use: Reports: Coffee Other Caffeine Use: decaf - Recreational Drug Use Recreational Drug Use: No - Living Situation & Occupation Living situation: Reports: Occupation: Retired ED ROS GENERAL - Review of Systems Review Of Systems: See Below Constitutional: Reports: Malaise, Weakness, Fatigue. Denies: Fever, Chills, Decreased Appetite, Weight Loss HEENT: Reports: Glasses Respiratory: Reports: Shortness of Breath, Wheezing, Cough. Denies: Pleuritic Chest Pain (Using.), Sputum, Hemoptysis Cardiovascular: Reports: Chest Pain ( central chest pain), Blood Pressure Problem (X1-1/2 hours ), Dyspnea on Exertion (Dependent edema usually left leg worse than the right.), Edema, Palpitations. Denies: Claudication, Lightheadedness, Orthopnea Endocrine: Reports: Fatigue GI/Abdominal: Reports: Other (Problems with GERD. Moderate obesity). Denies: Abdominal Pain, Constipation, Diarrhea : Reports: Frequency, Other (Nocturia usually x3. Decreased) Musculoskeletal: Reports: Joint Pain ( urinary stream hips low back shoulders and neck at times.) Skin: Reports: Bruising (Bruises easily on contact due to being on Coumadin for many years.) Neurological: Reports: No Symptoms Psychiatric: Reports: No Symptoms Hematologic/Lymphatic: Reports: No Symptoms Immunologic: Reports: No Symptoms ED EXAM, GENERAL - Physical Exam Exam: See Below Exam Limited By: No Limitations General Appearance: Alert, WD/WN, Mild Distress, Other (Patient does feel mildly warm palpation and face appears flushed. Temperature is 36.7 according to nursing staff. Heart rate 85 minutes irregular irregular at about with atrial fibrillation. Respiratory to 20 with O2 sats of 95 to 97% room air BP elevated at 200/88.) Eye Exam: Bilateral Eye: Normal Inspection (No scleral icterus or blepharal pallor.), PERRL Ears: Normal TMs Throat/Mouth: Normal Inspection, Normal Lips, Normal Oropharynx Head: Atraumatic, Normocephalic Neck: Normal Inspection, Supple, Non-Tender, Full Range of Motion, Carotid Bruit (There is a murmur radiating from his heart into both carotid arteries worse on the right side than on the left.), Other (Patient clinically has aortic stenosis and mitral insufficiency murmurs.). No: Lymphadenopathy (L), Lymphadenopathy (R) Respiratory/Chest: Respiratory Distress (Tachypneic at rest.), Decreased Breath Sounds. No: Lungs Clear, Normal Breath Sounds, Rales, Rhonchi, Wheezing Cardiovascular: Systolic Murmur (And systolic grade 3 out of 6 murmur appreciated left lower sternal border which radiates up into the right carotid artery. There is also a murmur left anterior chest that radiates towards the left axilla compatible with mitral insufficiency murmur.), Irregularly Irregular (Patient on ECG has a relatively regular rhythm with out any discernible P waves. History of atrial fibrillation.). No: Normal Peripheral Pulses Peripheral Pulses: 1+: Posterior Tibial (L) (Likely has a component of peripheral vascular disease. Does have edema both lower extremities.), Posterior Tibial (R), Dorsalis Pedis (L), Dorsalis Pedis (R), 2+: Carotid (L), Carotid (R) GI/Abdominal: Normal Bowel Sounds, Soft, Non-Tender, No Organomegaly, No Distention, Other. No: No Mass, Pelvis Stable, Guarding (Moderate obesity. No surgical scars.), Rigid, Rebound, Tender (Male) Exam: No Hernia Back Exam: Decreased Range of Motion, Other. No: CVA Tenderness (L), CVA Tenderness (R) (Creased lordotic curvature lumbar spine) Extremities: Normal Inspection, Pedal Edema (3+ pitting edema both lower extremities. Diffuse venous stasis dermatitis both lower extremities.) Neurological: Alert, Oriented, CN II-XII Intact, Normal Cognition Psychiatric: Normal Affect, Normal Mood Skin Exam: Warm, Dry, Intact, Normal Color, No Rash #1 Interpretation EKG Date: 05/09/20 Time: 23:02 Rhythm: A-Fib (With a regular rate.) Rate (Beats/Min): 90 Randolph: Normal P-Wave: Absent QRS: Other (Left ventricular hypertrophy pattern. Nonspecific intraventricular conduction delay.) ST-T: Other (T wave inversion in aVL flattening in lead I. ST segment depression appreciated to leads V3 to V6 also appreciated in leads II, III and aVF suggesting inferior apical ischemia) QT: Prolonged (Moderately prolonged) EKG Interpretation Comments: Abnormal ECG ST segment depression in multiple leads suggesting diffuse ischemia involving anterior inferior leads. #2 Interpretation EKG Date: 05/10/20 Time: 01:41 Rhythm: A-Fib (With rate of 60 to 135/min) Rate (Beats/Min): 88 Randolph: LAD-Left Randolph Deviation (Mild left axis deviation -8 degrees) P-Wave: Absent QRS: Other (Left ventricular hypertrophy pattern. Nonspecific interventricular conduction delay.) ST-T: Depressed (ST segment depression V4 to V6 leads II and aVF suggesting inferior apical ischemia) QT: Prolonged (Mildly prolonged) EKG Interpretation Comments: Abnormal ECG Course - Vital Signs Last Recorded V/S: Last Vital Signs Temp 36.2 C 05/10/20 01:41 Pulse 91 05/10/20 01:41 Resp 16 05/10/20 01:41 BP 183/90 H 05/10/20 01:41 Pulse Ox 96 05/10/20 01:41 - Orders/Labs/Meds Orders: Active Orders 24 hr Category Date Time Status Chest 1V Frontal [CR] Stat Exams 05/09/20 23:17 Taken EKG 12 Lead [EK] Stat Ther 05/10/20 00:31 Ordered Labs: Laboratory Tests 05/09/20 05/09/20 05/09/20 Range/Units 23:18 23:18 23:18 WBC 6.87 (4.23-9.07) K/mm3 RBC 3.89 L (4.63-6.08) M/mm3 Hgb 11.7 L (13.7-17.5) gm/dl Hct 35.2 L (40.1-51.0) % MCV 90.5 (79.0-92.2) fl MCH 30.1 (25.7-32.2) pg MCHC 33.2 (32.2-35.5) g/dl RDW Std Deviation 50.3 H (35.1-43.9) fL Plt Count 130 L (163-337) K/mm3 MPV 11.1 (9.4-12.3) fl Neut % (Auto) 75.3 H (34.0-67.9) % Lymph % (Auto) 12.2 L (21.8-53.1) % [place] % (Auto) 8.9 (5.3-12.2) % Eos % (Auto) 3.3 (0.8-7.0) Baso % (Auto) 0.3 (0.1-1.2) % Neut # (Auto) 5.17 (1.78-5.38) K/mm3 Lymph # (Auto) 0.84 L (1.32-3.57) K/mm3 [place] # (Auto) 0.61 (0.30-0.82) K/mm3 Eos # (Auto) 0.23 (0.04-0.54) K/mm3 Baso # (Auto) 0.02 (0.01-0.08) K/mm3 PT 27.2 H (9.7-12.0) SECONDS INR 2.59 APTT 41.9 H (21.7-31.4) SECONDS D-Dimer, Quantitative (0.19-0.50) mg/L Sodium 141 (136-145) mEq/L Potassium 3.6 (3.5-5.1) mEq/L Chloride 106 (98-107) mEq/L Carbon Dioxide 27 (21-32) mEq/L Anion Gap 11.6 (5-15) BUN 28 H (7-18) mg/dL Creatinine 1.5 H (0.7-1.3) mg/dL Est Cr Clr Drug Dosing 42.43 mL/min Estimated GFR (MDRD) 46 (>60) mL/min BUN/Creatinine Ratio 18.7 H (14-18) Glucose 144 H (83-115) mg/dL Calcium 9.0 (8.5-10.1) mg/dL Magnesium 1.8 (1.8-2.4) mg/dl Ferritin (26-388) ng/ml Total Bilirubin 0.5 (0.2-1.0) mg/dL AST 15 (15-37) U/L ALT 36 (16-63) U/L Alkaline Phosphatase 93 (46-116) U/L Lactate Dehydrogenase (85-227) U/L CK-MB (CK-2) 1.4 (0-3.6) ng/ml Troponin I 0.532 H* (0.00-0.056) ng/mL C-Reactive Protein 0.4 (<1.0) mg/dL NT-Pro-B Natriuret Pep (0-125) pg/mL Total Protein 6.8 (6.4-8.2) g/dl Albumin 3.3 L (3.4-5.0) g/dl Globulin 3.5 gm/dL Albumin/Globulin Ratio 0.9 L (1-2) Urine Color (Yellow) Urine Appearance (Clear) Urine pH (5.0-8.0) Ur Specific [place]ison (1.005-1.030) Urine Protein (Negative) Urine Glucose (UA) (Negative) Urine Ketones (Negative) Urine Occult Blood (Negative) Urine Nitrite (Negative) Urine Bilirubin (Negative) Urine Urobilinogen (0.2-1.0) Ur Leukocyte Esterase (Negative) U Hyaline Cast (Auto) (0-5) /lpf Urine RBC (0-5) /hpf Urine WBC (0-5) /hpf Ur Squamous Epith Cells (0-5) /hpf Urine Bacteria (FEW) /hpf Urine Mucus (FEW) /hpf SARS-CoV-2 RNA (PATRICIA) (NEGATIVE) 05/09/20 05/09/20 05/09/20 Range/Units 23:18 23:18 23:18 WBC (4.23-9.07) K/mm3 RBC (4.63-6.08) M/mm3 Hgb (13.7-17.5) gm/dl Hct (40.1-51.0) % MCV (79.0-92.2) fl MCH (25.7-32.2) pg MCHC (32.2-35.5) g/dl RDW Std Deviation (35.1-43.9) fL Plt Count (163-337) K/mm3 MPV (9.4-12.3) fl Neut % (Auto) (34.0-67.9) % Lymph % (Auto) (21.8-53.1) % [place] % (Auto) (5.3-12.2) % Eos % (Auto) (0.8-7.0) Baso % (Auto) (0.1-1.2) % Neut # (Auto) (1.78-5.38) K/mm3 Lymph # (Auto) (1.32-3.57) K/mm3 [place] # (Auto) (0.30-0.82) K/mm3 Eos # (Auto) (0.04-0.54) K/mm3 Baso # (Auto) (0.01-0.08) K/mm3 PT (9.7-12.0) SECONDS INR APTT (21.7-31.4) SECONDS D-Dimer, Quantitative 0.20 (0.19-0.50) mg/L Sodium (136-145) mEq/L Potassium (3.5-5.1) mEq/L Chloride (98-107) mEq/L Carbon Dioxide (21-32) mEq/L Anion Gap (5-15) BUN (7-18) mg/dL Creatinine (0.7-1.3) mg/dL Est Cr Clr Drug Dosing mL/min Estimated GFR (MDRD) (>60) mL/min BUN/Creatinine Ratio (14-18) Glucose (83-115) mg/dL Calcium (8.5-10.1) mg/dL Magnesium (1.8-2.4) mg/dl Ferritin (26-388) ng/ml Total Bilirubin (0.2-1.0) mg/dL AST (15-37) U/L ALT (16-63) U/L Alkaline Phosphatase (46-116) U/L Lactate Dehydrogenase 168 (85-227) U/L CK-MB (CK-2) (0-3.6) ng/ml Troponin I (0.00-0.056) ng/mL C-Reactive Protein (<1.0) mg/dL NT-Pro-B Natriuret Pep 2025 H (0-125) pg/mL Total Protein (6.4-8.2) g/dl Albumin (3.4-5.0) g/dl Globulin gm/dL Albumin/Globulin Ratio (1-2) Urine Color (Yellow) Urine Appearance (Clear) Urine pH (5.0-8.0) Ur Specific [place] (1.005-1.030) Urine Protein (Negative) Urine Glucose (UA) (Negative) Urine Ketones (Negative) Urine Occult Blood (Negative) Urine Nitrite (Negative) Urine Bilirubin (Negative) Urine Urobilinogen (0.2-1.0) Ur Leukocyte Esterase (Negative) U Hyaline Cast (Auto) (0-5) /lpf Urine RBC (0-5) /hpf Urine WBC (0-5) /hpf Ur Squamous Epith Cells (0-5) /hpf Urine Bacteria (FEW) /hpf Urine Mucus (FEW) /hpf SARS-CoV-2 RNA (PATRICIA) (NEGATIVE) 05/09/20 05/09/20 05/10/20 Range/Units 23:18 23:30 01:37 WBC (4.23-9.07) K/mm3 RBC (4.63-6.08) M/mm3 Hgb (13.7-17.5) gm/dl Hct (40.1-51.0) % MCV (79.0-92.2) fl MCH (25.7-32.2) pg MCHC (32.2-35.5) g/dl RDW Std Deviation (35.1-43.9) fL Plt Count (163-337) K/mm3 MPV (9.4-12.3) fl Neut % (Auto) (34.0-67.9) % Lymph % (Auto) (21.8-53.1) % [place] % (Auto) (5.3-12.2) % Eos % (Auto) (0.8-7.0) Baso % (Auto) (0.1-1.2) % Neut # (Auto) (1.78-5.38) K/mm3 Lymph # (Auto) (1.32-3.57) K/mm3 [place] # (Auto) (0.30-0.82) K/mm3 Eos # (Auto) (0.04-0.54) K/mm3 Baso # (Auto) (0.01-0.08) K/mm3 PT (9.7-12.0) SECONDS INR APTT (21.7-31.4) SECONDS D-Dimer, Quantitative (0.19-0.50) mg/L Sodium (136-145) mEq/L Potassium (3.5-5.1) mEq/L Chloride (98-107) mEq/L Carbon Dioxide (21-32) mEq/L Anion Gap (5-15) BUN (7-18) mg/dL Creatinine (0.7-1.3) mg/dL Est Cr Clr Drug Dosing mL/min Estimated GFR (MDRD) (>60) mL/min BUN/Creatinine Ratio (14-18) Glucose (83-115) mg/dL Calcium (8.5-10.1) mg/dL Magnesium (1.8-2.4) mg/dl Ferritin 128 (26-388) ng/ml Total Bilirubin (0.2-1.0) mg/dL AST (15-37) U/L ALT (16-63) U/L Alkaline Phosphatase (46-116) U/L Lactate Dehydrogenase (85-227) U/L CK-MB (CK-2) (0-3.6) ng/ml Troponin I (0.00-0.056) ng/mL C-Reactive Protein (<1.0) mg/dL NT-Pro-B Natriuret Pep (0-125) pg/mL Total Protein (6.4-8.2) g/dl Albumin (3.4-5.0) g/dl Globulin gm/dL Albumin/Globulin Ratio (1-2) Urine Color Yellow (Yellow) Urine Appearance Clear (Clear) Urine pH 6.0 (5.0-8.0) Ur Specific [place] > or = 1.030 (1.005-1.030) Urine Protein 3+ H (Negative) Urine Glucose (UA) Negative (Negative) Urine Ketones Negative (Negative) Urine Occult Blood 1+ H (Negative) Urine Nitrite Negative (Negative) Urine Bilirubin Negative (Negative) Urine Urobilinogen 0.2 (0.2-1.0) Ur Leukocyte Esterase Negative (Negative) U Hyaline Cast (Auto) 0-5 (0-5) /lpf Urine RBC 5-10 H (0-5) /hpf Urine WBC 0-5 (0-5) /hpf Ur Squamous Epith Cells 5-10 H (0-5) /hpf Urine Bacteria Few (FEW) /hpf Urine Mucus Moderate H (FEW) /hpf SARS-CoV-2 RNA (PATRICIA) Negative (NEGATIVE) Meds: Medications Discontinued Medications Generic Name Dose Route Start Last Admin Trade Name Freq PRN Reason Stop Dose Admin Aspirin 324 mg 05/09/20 23:16 05/09/20 23:26 Aspirin PO 05/09/20 23:17 324 mg ONETIME ONE Administration Hydromorphone HCl 0.5 mg 05/09/20 23:18 05/09/20 23:26 Dilaudid IVPUSH 05/09/20 23:19 0.5 mg ONETIME ONE Administration Hydromorphone HCl 1 mg 05/10/20 01:13 05/10/20 01:34 Dilaudid IVPUSH 05/10/20 01:14 1 mg ONETIME ONE Administration Nitroglycerin/Dextrose 25 mg in 250 mls @ 9 mls/hr 05/09/20 23:30 05/10/20 00:45 Nitroglycerin 25 Mg/D5w 250 Ml IV 15 mcg/min TITRATE STEPHANIE 9 mls/hr Titration Protocol 15 MCG/MIN Metoclopramide HCl 10 mg 05/09/20 23:18 05/09/20 23:26 Reglan IVPUSH 05/09/20 23:19 10 mg ONETIME ONE Administration - Radiology Interpretation Free Text/Narrative:: 74-year-old male presents to the ED with a 1-1/2-hour history of central chest pressure squeezing discomfort rating into his left upper extremity to the elbow. By history he has been developing unstable angina for several months. He has seen mortgage underwriter and is scheduled for an angiogram on Monday next week [address] Moura at [facility] in [place]. Patient has chronic atrial fibrillation and is currently on Coumadin high-dose 10 mg 5 days a week and 15 mg other 2 days. He does not know what his last INR was. No recent adjustments to his Coumadin dosage made. History of type 2 diabetes for greater than 15 years controlled with oral meds. Never used insulin. Quit smoking at age 31. Risk factors include moderate obesity and hypertension. ECG suggest diffuse ST segment depression V3 to V6 and also to 3 and aVF suggesting inferior apical infarct. Non-STEMI. Patient will be started on nitroglycerin drip at 10 mcg/min. Given Dilaudid 0.5 mg IV with Reglan 10 mg IV for pain relief. Patient is already on Coumadin. I will give him 4 baby aspirin chewed but no Plavix at this time. - Re-Assessments/Exams Free Text/Narrative Re-Assessment/Exam: 05/10/20 00:37 White blood cell Count is normal at 6.87. Auto differential shows 75.3% neutrophils. Hemoglobin is 11.7 with hematocrit of 35.2. MCV is normal at 90.5. Platelet count 130,000 slightly on the low side. PT is 27.2 with an INR of 2.59. PTT is 41.9. D-dimer is 0.20. Sodium 141 with a potassium of 3.6. Chloride 106 with a bicarb of 27. Anion gap is 11.6. BUN is 28 with a creatinine of 1.5. GFR is estimated at 46. Glucose 144. Calcium 9.0. Magnesium 1.8. Ferritin 128. Bilirubin and liver function is normal. LDH normal at 168. CK-MB fraction 1.4. Troponin I is elevated at 0.532. C-re active protein 0.4. BNP 2025. Total protein is 6.8 with an albumin fraction of 3.3. COVID-19 viral studies are negative. Chest x-ray done portably reveals marked cardiomegaly with diffuse vascular congestion pattern. No pleural effusions evident. 05/10/20 01:00: I did speak with through the 1 call nurse at [facility] in [place] with initially Dr. Terry on-call mortgage underwriter who recommended the patient be transferred to their facility for admission. I spoke with on-call hospitalist Dr. Mohan whom has accepted care of this patient. Patient continues to have central chest pain rated as 1-2 out of 10. Nitroglycerin drip was increased a while ago to 15 mcg/min. Will repeat Dilaudid 1 mg IV for pain relief. We will be looking for ambulance transport as [facility] is c urrently in route to [place]. 05/10/20 01:15: [facility] will be taking the patient to [facility] in [place]. Second ECG essentially is unchanged from the first 1. Continue to show mild ST segment depression in leads V3 4 to V6 and leads II and aVF suggesting inferior apical ischemia. 05/10/20 02:00: Reports pain is much better and nearly gone after second dose of Dilaudid IV. Paramedics are now here to take him to [place] Departure - Departure Time of Disposition: 02:10 Disposition: DC/Tfer to Acute Hospital 02 Reason for Transfer *Q: Other Condition: Serious Clinical Impression: Central chest pain, Non-ST elevated myocardial infarction (non-STEMI), Elevated troponin I level, History of unstable angina, Chronic atrial fibrillation, Anticoagulation monitoring, INR range 2-3 Diabetes mellitus Qualifiers: Diabetes mellitus type: type 2 Diabetes mellitus fdc insulin use: without long term care pharmacist use Chronic kidney disease stage: stage 3 (moderate) Chronic kidney disease stage 3 subtype: stage 3b (GFR 30-44) Obesity Qualifiers: Obesity type: due to excess calories Obesity classification: adult class 3 (BMI >= 40) Serious obesity comorbidity presence: without serious comorbidity Body mass index: BMI 40.0-44.9 Qualified Code(s): E66.01 - Morbid (severe) obesity due to excess calories Referrals: Tabatha Rivera MD [Primary Care Provider] - Forms: ED Department Discharge Additional Instructions: .74-year-old male with a history of gradually worsening angina over the last 3 months presents to the ED after he developed central chest squeezing chest discomfort at 2130 hrs. last evening. Patient came into the ED shortly after 23 00 hrs. month standard time. ECG done initially shows ST segment depression V3 to V6 also leads to and aVF suggesting inferior apical ischemia. Patient treated with nitroglycerin drip starting at 10 mcg/min and was eventually titrated up to 15 mcg/min. Given initial dose of Dilaudid 0.5 mg IV for pain relief with Reglan 10 mg IV for nausea relief. Chest x-ray reveals marked cardiomegaly with diffuse vascular congestion pattern. Troponin I elevated at 0.532. BNP elevated at 2024. History of chronic atrial fibrillation with rate control. Therapeutic INR. Patient transferred to [facility] in [place] as his mortgage underwriter is Dr. Moura. Dr. Terry is on-call mortgage underwriter. Dr. Mohan accepted the patient in care to the hospital service. Sepsis Event Note (ED) - Evaluation Sepsis Screening Result: No Definite Risk - Focused Exam Vital Signs: Vital Signs Temp Pulse Resp BP Pulse Ox 05/10/20 01:41 36.2 C 91 16 183/90 H 96 05/09/20 23:05 36.7 C 85 20 200/88 H 97 - My Orders Last 24 Hours: My Active Orders 05/09/20 23:17 Chest 1V Frontal [CR] Stat 05/10/20 00:31 EKG 12 Lead [EK] Stat - Assessment/Plan Last 24 Hours: My Active Orders 05/09/20 23:17 Chest 1V Frontal [CR] Stat 05/10/20 00:31 EKG 12 Lead [EK] Stat
[2020-05-09] MEDS ORDERED: Nitroglycerin/D5W 25 MG/250 ML BOTTLE IV SCH (23:30)
[2020-05-10] MEDS ORDERED: HYDROmorphone 1 MG/ML Syringe IVPUSH ONE (01:13)
[2020-05-10 01:41] VITALS: BP 183/90; PULSE 91
--- NOTE | 2020-05-11 12:24 | CR ---
PROCEDURE INFORMATION: Exam: XR Chest, 1 View Exam date and time: 05/10/2020 12:29 AM Age: 74 years old Clinical indication: Type not specified; Patient HX: Central chest pain; Additional info: Prior report scanned in for your review TECHNIQUE: Imaging protocol: XR of the chest Views: 1 view. COMPARISON: DX Ribs 2V w Chest Rt 07/11/2019 11:30 AM FINDINGS: Lungs: Mild pulmonary vascular congestion. Pleural space: Unremarkable. No pleural effusion. No pneumothorax. Heart/Mediastinum: Enlarged cardiac silhouette. Bones/joints: Unremarkable. IMPRESSION: Enlarged cardiac silhouette with mild pulmonary vascular congestion. Thank you for allowing us to participate in the care of your patient. Dictated and Authenticated by: Kvng Dang MD 05/10/2020 2:38 AM Central Time ([place] & [place]) BENEDICTO
== END 2020-05-10 02:09 ==
LOC: JD.ED 22:47
DX: I21.4 Non-ST elevation (NSTEMI) myocardial infarction (principal); I48.91 Unspecified atrial fibrillation; R79.89 Other specified abnormal findings of blood chemistry; I12.9 Hypertensive chronic kidney disease with stage 1 through stage 4 chronic kidney disease, or unspecified chronic kidney disease; E11.22 Type 2 diabetes mellitus with diabetic chronic kidney disease; N18.32 Chronic kidney disease, stage 3b; E66.01 Morbid (severe) obesity due to excess calories; E78.00 Pure hypercholesterolemia, unspecified; J44.9 Chronic obstructive pulmonary disease, unspecified; I20.0 Unstable angina; Z20.828 Contact with and (suspected) exposure to other viral communicable diseases; Z88.8 Allergy status to other drugs, medicaments and biological substances; Z79.01 Long term (current) use of anticoagulants; Z79.899 Other long term (current) drug therapy; Z79.84 Long term (current) use of oral hypoglycemic drugs; Z87.891 Personal history of nicotine dependence
CPT/HCPCS: 36415; 71045; 80053; 81001; 82553; 82728; 83615; 83735; 83880; 84484; 85025; 85379; 85610; 85730; 86140; 93005; 96365; 96366; 96375; 96376; 99285; A9270; J1170; J2765; J3490; U0002; 93010

== ENCOUNTER 2020-09-29 08:46 | Emergency (ER) | payer MEDICARE, BC ==
[2020-09-29] MEDS ORDERED: Furosemide 40 MG/4 ML VIAL IVPUSH ONE (09:10)
[2020-09-29] MEDS ORDERED: Metoclopramide 10 MG/2 ML SDV IVPUSH ONE (09:13)
--- NOTE | 2020-09-29 09:14 | EDM.PDOC ---
ED HPI GENERAL MEDICAL PROBLEM - General Chief Complaint: Cardiovascular Problem Stated Complaint: DIZZINESS ON AND OFF Time Seen by Provider: 09/29/20 09:10 Source of Information: Reports: Patient History Limitations: Reports: No Limitations - History of Present Illness INITIAL COMMENTS - FREE TEXT/NARRATIVE: 75-year-old male presents to the ED with chief complaint of vertigo. He appreciated this over the last 5 days and it seemed to be much worse this morning than his ever been. He appreciated when he is lies down and when he got up and started to walk this morning he is bouncing off the walter. No associated nausea or vomiting. Perhaps some increased tinnitus in both ears. He recognizes that the symptoms are better if he is not moving his head or neck. No headache no recent falls or closed head injuries. He has had vertigo a couple of times in the past. Second complaint is dyspnea on minimal exertion since having open heart surgery with quadruple bypass and aortic valve replacement in May 2020 at [facility] in [place]. He states even walking to the mailbox which is 100 yards makes him acutely dyspneic and he has to wait a while before he can turn around and go back to the house. Coughing up some occasional white sputum. No fever chills. No COVID-19 illness. He states his weight is staying stable around 250 -252 pounds. He did see Dr. Rhett Coronado physician clinical laboratory assistant last week and no medication changes were made. Of note his med list indicates that he is not taking any diuretics. Onset: Gradual, Other (Dyspnea on exertion since having open heart surgery in mid May 2020.) Onset Date: 09/24/20 (To go symptoms have gradually worsened over the last 5 days.) Duration: Day(s): (Vertigo x5 days) Quality: Reports: Other (Dyspnea on minimal exertion seems to be getting a bit worse. Finding can do less and less with developing shortness of breath. Weight is stable. Vertigo symptoms are worse with movement of the head or neck but at rest go away.) Severity: Moderate Improves with: Reports: Rest Worsens with: Reports: Movement (Vertigo symptoms improved with rest. Notices dyspnea. Dyspnea worse with movement of his head neck and) Context: Denies: Activity, Exercise, Lifting, Sick Contact, Trauma, Other Associated Symptoms: Reports: Cough, Malaise, Shortness of Breath (On exertion), Weakness. Denies: No Other Symptoms, Confusion (.), Chest Pain, cough w sputum (Nonproductive cough), Diaphoresis, Fever/Chills, Headaches, Loss of Appetite, Nausea/Vomiting, Rash, Seizure, Syncope Treatments C[employer] BOW [employer]KER: Reports: Other (see below) (He has taken no new medications.) - Related Data Allergies Allergy/AdvReac Type Severity Reaction Status Date / Time fosinopril Allergy Severe Cannot Verified 09/29/20 09:00 Remember metronidazole Allergy Severe Cannot Verified 09/29/20 09:00 Remember Home Meds: Home Meds Allopurinol [Zyloprim] 300 mg PO DAILY 09/29/20 [History] Aspirin [Halfprin] 81 mg PO DAILY 09/29/20 [History] Calcium Acetate 667 mg PO TID 09/29/20 [History] Cholecalciferol (Vitamin D3) [Vitamin D3] 1,000 intnl unit PO DAILY 09/29/20 [History] Diltiazem [Tiazac] 240 mg PO DAILY 09/29/20 [History] Docusate Sodium/Sennosides [Senokot-S] 100 mg PO BID 09/29/20 [History] Doxazosin [Cardura] 4 mg PO DAILY 09/29/20 [History] Ferrous Sulfate 325 mg PO BID 09/29/20 [History] Folic Acid 1 mg PO DAILY 09/29/20 [History] Furosemide [Lasix] 20 mg PO DAILY 09/29/20 [History] Furosemide [Lasix] 40 mg PO DAILY #30 tablet 09/29/20 [Rx] Lutein 6 mg PO DAILY 09/29/20 [History] Meclizine [Antivert] 25 mg PO TID #15 tab 09/29/20 [Rx] Metoprolol Succinate 50 mg PO DAILY 09/29/20 [History] Multivitamin,Therapeutic [Oncovite] 1 tab PO DAILY 09/29/20 [History] Sodium Bicarbonate 650 mg PO TID 09/29/20 [History] Thiamine HCl [Vitamin B-1] 100 mg PO DAILY 09/29/20 [History] Warfarin [Coumadin] 10 mg PO SUTUWETHSA 09/29/20 [History] Warfarin [Coumadin] 12.5 mg PO MOFR 09/29/20 [History] atorvaSTATin [Lipitor] 40 mg PO DAILY 09/29/20 [History] glipiZIDE [Glucotrol XL] 2.5 mg PO DAILY 09/29/20 [History] lisinopriL [Lisinopril] 5 mg PO DAILY 09/29/20 [History] Past Medical History HEENT History: Reports: Impaired Vision Cardiovascular History: Reports: Afib, Bypass (Quadruple bypass at the same time his aortic valve replacement mid May 2020), Heart Valve Replacement (He believes aortic valve is replaced in May with quadruple bypass), High Cholesterol, Hypertension, SOB on Exertion Respiratory History: Reports: Sleep Apnea (Does use CPAP at bedtime for the last 8 years. He states it has worked wonderful for him.) Genitourinary History: Reports: BPH Musculoskeletal History: Reports: Arthritis (Knees hips neck shoulders at times.), Back Pain, Chronic, Osteoarthritis Endocrine/Metabolic History: Reports: Diabetes, Type II Hematologic History: Reports: Anticoagulation Therapy, Blood Transfusion(s) Dermatologic History: Reports: Cellulitis - Past Surgical History Cardiovascular Surgical History: Reports: Coronary Artery Bypass, Valve Replacement Social & Family History - Tobacco Use Tobacco Use Status *Q: Former Tobacco User Used Tobacco, but Quit: Yes Month/Year Tobacco Last Used: 1979 - Caffeine Use Caffeine Use: Reports: Coffee - Recreational Drug Use Recreational Drug Use: No - Living Situation & Occupation Living situation: Reports: Occupation: Retired ED ROS GENERAL - Review of Systems Review Of Systems: See Below Constitutional: Reports: Malaise, Weakness, Fatigue, Weight Gain (1 or 2 pound weight gain.). Denies: Fever, Chills, Decreased Appetite, Weight Loss HEENT: Reports: Glasses Respiratory: Reports: Shortness of Breath, Cough. Denies: Wheezing (On exertion), Pleuritic Chest Pain, Sputum, Hemoptysis (Nonproductive) Cardiovascular: Reports: Blood Pressure Problem, Dyspnea on Exertion, Edema (Always has a little bit of edema in his lower extremities around his socks and ankles. Worse as of late.). Denies: Chest Pain, Claudication, Lightheadedness, Orthopnea, Palpitations, PND, Syncope Endocrine: Reports: Fatigue GI/Abdominal: Reports: No Symptoms. Denies: Diarrhea, Decreased Appetite, Di stension, Flatus, Hematemesis, Hematochezia, Melena, Mucous in Stool, Nausea, Stool Incontinence, Vomiting : Reports: Frequency, Other (In a day. Using CPAP at bedtime he is not up at night at all to void.) Musculoskeletal: Reports: Neck Pain, Shoulder Pain, Back Pain, Joint Pain (Knees and hips at times.) Skin: Reports: No Symptoms Neurological: Reports: No Symptoms, Dizziness (Experiencing vertigo symptoms with movement of head or neck for the last 5 days much worse this morning after he got up from bed he was staggering and bouncing off the walter.), Difficulty Walking (Due to being off balance. Feels like being on a [id number] and cannot get off). Denies: Confusion, Headache, Numbness, Syncope, Tingling, Tremors, Trouble Speaking ( unless he holds perfectly still.), Weakness, Change in Speech Psychiatric: Reports: No Symptoms Hematologic/Lymphatic: Reports: No Symptoms Immunologic: Reports: No Symptoms ED EXAM, GENERAL - Physical Exam Exam: See Below Exam Limited By: No Limitations General Appearance: Alert, WD/WN, No Apparent Distress, Other (Temperature is 36.1 degrees. Heart rate 62 and sinus respiratory is 20 with O2 sats of 97% room air BP is elevated at 188/87. He is currently 144/80.) Eye Exam: Bilateral Eye: Normal Inspection, Nystagmus, PERRL Ears: Normal TMs Throat/Mouth: Normal Inspection, Normal Lips, Normal Teeth, Normal Oropharynx Head: Atraumatic, Normocephalic Neck: Normal Inspection, Supple, Non-Tender, Limited Range of Motion (Mildly decreased range of motion of the neck particularly lateral flexion and lateral rotation. Mild crepitus with movement.). No: Lymphadenopathy (L), Lymphadenopathy (R), Tender Lateral, Thyromegaly Respiratory/Chest: Respiratory Distress (Hip knee at rest. 20/min), Decreased Breath Sounds (Breath sounds are decreased to the lower 20% of lung bradford bilaterally.), Rales (Rales throughout the lower 20% of lung bradford bilaterally.) Cardiovascular: Regular Rate, Rhythm, No Gallop, No Murmur, No Rub. No: Normal Peripheral Pulses Peripheral Pulses: 2+: Carotid (L), Carotid (R), Posterior Tibial (L), Posterior Tibial (R), Dorsalis Pedis (L), Dorsalis Pedis (R) GI/Abdominal: Normal Bowel Sounds, Soft, Non-Tender, No Organomegaly, No Mass, Pelvis Stable, Other (Patient has a very obese abdomen. Abdominal girth limits ability to palpate solid organs. Mild umbilical hernia which does not bother him.) Back Exam: Other (Increased lordotic curvature lumbar spine). No: CVA Tenderness (L), CVA Tenderness (R) Extremities: Normal Inspection, Normal Range of Motion, No Pedal Edema, Other Neurological: Alert, Oriented, CN II-XII Intact, Normal Cognition Psychiatric: Normal Affect, Normal Mood Skin Exam: Warm, Dry, Intact, Normal Color, No Rash #1 Interpretation EKG Date: 09/29/20 Time: 09:19 Rhythm: NSR Rate (Beats/Min): 65 [place]: Normal P-Wave: Absent (Waves are very difficult to identify. I believe he has a severe first-degree AV block placing the P wave closer to the T wave.) QRS: Other (Left ventricular hypertrophy with strain pattern. Decreased voltage throughout the precordial leads.) ST-T: Other (T wave flattening in lead 1 and slight T wave inversion aVL nonspecific findings.) QT: Prolonged EKG Interpretation Comments: Abnormal ECG Course - Vital Signs Last Recorded V/S: Last Vital Signs Temp 36.1 C 09/29/20 08:55 Pulse 62 09/29/20 08:55 Resp 20 09/29/20 08:55 BP 188/87 H 09/29/20 08:55 Pulse Ox 97 09/29/20 08:55 - Orders/Labs/Meds Orders: Active Orders 24 hr Category Date Time Status EKG Documentation Completion [RC] STAT Care 09/29/20 09:11 Active UA W/MICROSCOPIC [URIN] Stat Lab 09/29/20 09:55 Results Labs: Laboratory Tests 09/29/20 09/29/20 09/29/20 Range/Units 09:30 09:30 09:30 WBC 5.73 (4.23-9.07) K/mm3 RBC 4.09 L (4.63-6.08) M/mm3 Hgb 11.0 L (13.7-17.5) gm/dl Hct 34.6 L (40.1-51.0) % MCV 84.6 (79.0-92.2) fl MCH 26.9 (25.7-32.2) pg MCHC 31.8 L (32.2-35.5) g/dl RDW Std Deviation 57.0 H (35.1-43.9) fL Plt Count 159 L (163-337) K/mm3 MPV 12.5 H (9.4-12.3) fl Neut % (Auto) 79.4 H (34.0-67.9) % Lymph % (Auto) 11.3 L (21.8-53.1) % [place] % (Auto) 7.0 (5.3-12.2) % Eos % (Auto) 1.9 (0.8-7.0) Baso % (Auto) 0.2 (0.1-1.2) % Neut # (Auto) 4.55 (1.78-5.38) K/mm3 Lymph # (Auto) 0.65 L (1.32-3.57) K/mm3 [place]ford # (Auto) 0.40 (0.30-0.82) K/mm3 Eos # (Auto) 0.11 (0.04-0.54) K/mm3 Baso # (Auto) 0.01 (0.01-0.08) K/mm3 PT 16.5 H (9.7-12.0) SECONDS INR 1.56 APTT 35.0 H (21.7-31.4) SECONDS Sodium 143 (136-145) mEq/L Potassium 3.7 (3.5-5.1) mEq/L Chloride 105 (98-107) mEq/L Carbon Dioxide 29 (21-32) mEq/L Anion Gap 12.7 (5-15) BUN 25 H (7-18) mg/dL Creatinine 1.4 H (0.7-1.3) mg/dL Est Cr Clr Drug Dosing 44.79 mL/min Estimated GFR (MDRD) 50 (>60) mL/min BUN/Creatinine Ratio 17.9 (14-18) Glucose 157 H (83-115) mg/dL Calcium 8.9 (8.5-10.1) mg/dL Magnesium 2.0 (1.8-2.4) mg/dl Total Bilirubin 0.7 (0.2-1.0) mg/dL AST 26 (15-37) U/L ALT 40 (16-63) U/L Alkaline Phosphatase 122 H (46-116) U/L Troponin I 0.224 H* (0.00-0.056) ng/mL C-Reactive Protein <0.2 (<1.0) mg/dL NT-Pro-B Natriuret Pep (0-125) pg/mL Total Protein 6.8 (6.4-8.2) g/dl Albumin 3.1 L (3.4-5.0) g/dl Globulin 3.7 gm/dL Albumin/Globulin Ratio 0.8 L (1-2) Urine Color (Yellow) Urine Appearance (Clear) Urine pH (5.0-8.0) Ur Specific [place] (1.005-1.030) Urine Protein (Negative) Urine Glucose (UA) (Negative) Urine Ketones (Negative) Urine Occult Blood (Negative) Urine Nitrite (Negative) Urine Bilirubin (Negative) Urine Urobilinogen (0.2-1.0) Ur Leukocyte Esterase (Negative) 09/29/20 09/29/20 Range/Units 09:30 09:55 WBC (4.23-9.07) K/mm3 RBC (4.63-6.08) M/mm3 Hgb (13.7-17.5) gm/dl Hct (40.1-51.0) % MCV (79.0-92.2) fl MCH (25.7-32.2) pg MCHC (32.2-35.5) g/dl RDW Std Deviation (35.1-43.9) fL Plt Count (163-337) K/mm3 MPV (9.4-12.3) fl Neut % (Auto) (34.0-67.9) % Lymph % (Auto) (21.8-53.1) % Woodford % (Auto) (5.3-12.2) % Eos % (Auto) (0.8-7.0) Baso % (Auto) (0.1-1.2) % Neut # (Auto) (1.78-5.38) K/mm3 Lymph # (Auto) (1.32-3.57) K/mm3 [place] # (Auto) (0.30-0.82) K/mm3 Eos # (Auto) (0.04-0.54) K/mm3 Baso # (Auto) (0.01-0.08) K/mm3 PT (9.7-12.0) SECONDS INR APTT (21.7-31.4) SECONDS Sodium (136-145) mEq/L Potassium (3.5-5.1) mEq/L Chloride (98-107) mEq/L Carbon Dioxide (21-32) mEq/L Anion Gap (5-15) BUN (7-18) mg/dL Creatinine (0.7-1.3) mg/dL Est Cr Clr Drug Dosing mL/min Estimated GFR (MDRD) (>60) mL/min BUN/Creatinine Ratio (14-18) Glucose (83-115) mg/dL Calcium (8.5-10.1) mg/dL Magnesium (1.8-2.4) mg/dl Total Bilirubin (0.2-1.0) mg/dL AST (15-37) U/L ALT (16-63) U/L Alkaline Phosphatase (46-116) U/L Troponin I (0.00-0.056) ng/mL C-Reactive Protein (<1.0) mg/dL NT-Pro-B Natriuret Pep 3381 H (0-125) pg/mL Total Protein (6.4-8.2) g/dl Albumin (3.4-5.0) g/dl Globulin gm/dL Albumin/Globulin Ratio (1-2) Urine Color Yellow (Yellow) Urine Appearance Clear (Clear) Urine pH 6.0 (5.0-8.0) Ur Specific [place] 1.025 (1.005-1.030) Urine Protein 3+ H (Negative) Urine Glucose (UA) Negative (Negative) Urine Ketones Negative (Negative) Urine Occult Blood Trace-lysed H (Negative) Urine Nitrite Negative (Negative) Urine Bilirubin Negative (Negative) Urine Urobilinogen 0.2 (0.2-1.0) Ur Leukocyte Esterase Negative (Negative) Meds: Medications Discontinued Medications Generic Name Dose Route Start Last Admin Trade Name Freq PRN Reason Stop Dose Admin Furosemide 40 mg 09/29/20 09:10 09/29/20 09:36 Furosemide 40 Mg/4 Ml Vial IVPUSH 09/29/20 09:11 40 mg NOW ONE Administration Metoclopramide HCl 10 mg 09/29/20 09:13 09/29/20 09:36 Metoclopramide 10 Mg/2 Ml Sdv IVPUSH 09/29/20 09:14 10 mg ONETIME ONE Administration - Radiology Interpretation Free Text/Narrative:: 89-year-old male presents to the ED with 2 problems. Over the last 5 days he has developed intermittent sporadic vertigo symptoms but were much worse this morning upon getting up. He is appreciated there worse with getting in and out of bed and movement of his head or neck. He feels like he is on a bit of a [id number] at times. No associated nausea or vomiting. This morning he was bouncing off the walter in the hallway when he got up out of bed. No past history of vertigo. No recent closed head injuries. Examination of his nervous system is otherwise normal he has no no sustained nystagmus and cranial nerves II to XII were intact. Second problem is increasing dyspnea since having open heart surgery mid May 2020. He had his aortic valve replaced and quadruple bypass. He did see Fabiola RAYMUNDO last week but no changes to medications were made. On my examination there are fine crackles in both bases. He has decreased air entry to both lower lung bradford with a component of COPD clinically. He quit smoking 43 years ago. Plan he will have routine labs performed and a chest x-ray. ECG as well. Labs will include a BNP and magnesium. He will be given Reglan 7.5 mg IV for vertigo symptoms and Lasix 40 mg IV for dyspnea due to suspect mild CHF. - Re-Assessments/Exams Free Text/Narrative Re-Assessment/Exam: 09/29/20 10:22 White count is 5.73 with 79.4% neutrophils. Hemoglobin is 11.0 slightly low with hematocrit of 34.6. MCV is 84.6. Platelet count 159,000. PT is 116.5 with an INR of 1.56. Patient is anticoagulated and is subtherapeutic with Coumadin. PTT is 35.0. Sodium is 143 with a potassium of 3.7. Chloride is 105 with a bicarb of 29. Anion gap is 12.7. BUN is 25 with a creatinine elevated at 1.4 GFR is 50. Glucose slightly elevated 157. Calcium is 8.9 magnesium is 2.0 liver function is normal other than a slightly elevated alkaline phosphatase at 122. Troponin I is elevated at 0.224. C-reactive protein is less than 0.2 total protein 6.8 with an albumin fraction of 3.1 BNP is pending. Chest x-ray done portably does reveal moderate cardiomegaly with some blunting of the left costophrenic angle. I suspect there is a small or trace pleural effusion on the left side. Right costophrenic angle is easily visible. There appears to be a mild diffuse vascular congestion pattern. Of note there is a slight interstitial density noted within the left perihilar region uncertain if this is acute or chronic. Previous sternotomy is noted for prosthetic heart valve. 09/29/20 10:48 BNP is elevated at 3381 which accounts for his elevated troponin I.. Urinalysis shows 3+ proteinuria indicating kidney disease. Trace of occult lysed blood. This micro is pending. Departure - Departure Time of Disposition: 10:59 Disposition: Home, Self-Care 01 Reason for Transfer *Q: Other Condition: Fair Clinical Impression: Benign paroxysmal positional vertigo Congestive heart failure Qualifiers: Heart failure type: unspecified Heart failure chronicity: acute on chronic Qualified Code(s): I50.9 - Heart failure, unspecified Hypertensive heart disease Qualifiers: Heart failure presence: with heart failure Heart failure type: unspecified Qualified Code(s): I11.0 - Hypertensive heart disease with heart failure Prescriptions: Meclizine [Antivert] 25 mg PO TID #15 tab Furosemide [Lasix] 40 mg PO DAILY #30 tablet Instructions: Shortness of Breath, Adult, [id number], Vertigo, [id number], Heart Failure, Self Care, Heart Failure, Diagnosis, [id number] Referrals: Tabatha Rivera MD [Primary Care Provider] - Forms: ED Department Discharge Additional Instructions: Evaluation the emergency room today in regards to 2 problems. Over the last 4 to 5 days you develop vertigo symptoms which means a spinning, offkilter sensation when you move your head or neck. When you hold perfectly still the symptoms go away. Treatment is medication meclizine 25 mg taken every 8 hours for the next 5 days to bring this under control and hopefully make it go away. 85% of patients are usually better within 5 days. If not you need follow-up in the clinic. Next tablet would be due at approximately 3 PM today. Second problem was shortness of breath on minimal exertion and getting worse like going out to the mailbox. Recent open heart surgery with quadruple bypass and aortic valve replacement in mid May. Chest x-ray reveals a mildly enlarged heart with some diffuse vascular congestion or plump veins within the lungs. Lab tests reveal an elevated BNP which is a measuring stick for how well the heart is pumping. It is markedly elevated indicating that you are in mild congestive heart failure. This is not uncommon after major heart surgery. Treatment is to take diuretic Lasix 40 mg once daily every morning. This will help you reduce fluid accumulation in your lungs and improve your ability to walk and breathe better. You would need follow-up in the clinic with Dr. Rivera in about a week to 10 days time to check your serum potassium level since Lasix has the ability to lower a person's potassium level. Sepsis Event Note (ED) - Evaluation Sepsis Screening Result: No Definite Risk - Focused Exam Vital Signs: Vital Signs Temp Pulse Resp BP Pulse Ox 09/29/20 08:55 36.1 C 62 20 188/87 H 97 - My Orders Last 24 Hours: My Active Orders 09/29/20 09:11 EKG Documentation Completion [RC] STAT 09/29/20 09:55 UA W/MICROSCOPIC [URIN] Stat - Assessment/Plan Last 24 Hours: My Active Orders 09/29/20 09:11 EKG Documentation Completion [RC] STAT 09/29/20 09:55 UA W/MICROSCOPIC [URIN] Stat
--- NOTE | 2020-09-29 10:03 | CR ---
Chest: Portable view of the chest was obtained. Comparison: No previous study. Previous sternotomy is noted. Prosthetic heart valve is seen. Slight interstitial density is noted within the left perihilar region, uncertain if this is chronic or acute. Minimal blunting of the lateral costophrenic angles are seen. Right lung is clear. Heart size and mediastinum show nothing acute. Impression: 1. Slight parenchymal density within left perihilar region. Since no prior studies are available I am uncertain if this is acute or chronic although chronic is the most likely etiology. 2. Blunting of the costophrenic angles, this could be chronic or represent minimal pleural effusions. 3. Previous sternotomy is noted for prosthetic heart valve. Diagnostic code #3
[2020-09-29 11:54] VITALS: BP 175/77; PULSE 58
== END 2020-09-29 11:45 | disposition home or self-care (01) ==
LOC: JD.ED 08:46 → MERGE 08:46 → JD.ED 11:45
DX: I11.0 Hypertensive heart disease with heart failure (principal); I50.9 Heart failure, unspecified; H81.10 Benign paroxysmal vertigo, unspecified ear; I48.91 Unspecified atrial fibrillation; E78.00 Pure hypercholesterolemia, unspecified; E11.9 Type 2 diabetes mellitus without complications; M19.90 Unspecified osteoarthritis, unspecified site; Z87.891 Personal history of nicotine dependence; Z88.8 Allergy status to other drugs, medicaments and biological substances; Z88.1 Allergy status to other antibiotic agents; Z79.01 Long term (current) use of anticoagulants; Z79.82 Long term (current) use of aspirin; Z79.899 Other long term (current) drug therapy
CPT/HCPCS: 36415; 71045; 80053; 81001; 83735; 83880; 84484; 85025; 85610; 85730; 86140; 93005; 96374; 96375; 99285; J1940; J2765; 93010; 99284

== ENCOUNTER 2020-10-01 15:57 | Emergency (ER) | payer MEDICARE, BC ==
[2020-10-01 16:10] VITALS: BP 187/90; PULSE 77
[2020-10-01] MEDS ORDERED: Diphtheria,Pertussis(Acell),Tetanus Vaccine 0.5 ML Syringe IM ONE (16:37)
--- NOTE | 2020-10-01 16:45 | EDM.PDOC ---
ED HPI GENERAL MEDICAL PROBLEM - General Chief Complaint: Upper Extremity Injury/Pain Stated Complaint: R RING FINGER INJURY Time Seen by Provider: 10/01/20 16:08 Source of Information: Reports: Patient, RN Notes Reviewed History Limitations: Reports: No Limitations - History of Present Illness INITIAL COMMENTS - FREE TEXT/NARRATIVE: Patient is a 75-year-old male presenting to the emergency department with complaints of injury to his right fourth finger. States that he tripped over hitch and hit his finger against a tree and has been unable to bend it since that time. He has a small laceration to the tip of the finger as well. He is unsure when his last tetanus vaccination was, however states it is likely been greater than 10 years. Denies any previous injury to this extremity. - Related Data Allergies Allergy/AdvReac Type Severity Reaction Status Date / Time fosinopril Allergy Severe Cannot Verified 10/02/20 09:42 Remember metronidazole [From Flagyl] Allergy Cannot Verified 10/02/20 09:42 Remember fosinopril sodium AdvReac Cough Verified 10/02/20 09:42 [From Monopril] Home Meds: Home Meds Cholecalciferol (Vitamin D3) [Vitamin D3] 1,000 unit PO DAILY 06/26/14 [History] Doxazosin Mesylate [Cardura] 4 mg PO DAILY 06/26/14 [History] Lisinopril 20 mg PO BID 06/26/14 [History] Lutein 10 mg PO DAILY 06/26/14 [History] Warfarin [Coumadin] 10 mg PO SUTUWEFRSA 06/26/14 [History] dilTIAZem HCL [Cardizem] 240 mg PO DAILY 04/30/15 [History] Ferrous Sulfate [High Potency Iron] 65 mg PO BID 06/30/19 [History] Furosemide [Lasix] 20 mg PO DAILY 06/30/19 [History] glipiZIDE [Glucotrol XL] 2.5 mg PO DAILY 06/30/19 [History] Allopurinol [Zyloprim] 300 mg PO DAILY 05/09/20 [History] Sodium Bicarbonate 650 mg PO BID 05/09/20 [History] Warfarin [Coumadin] 12.5 mg PO MOTH 05/09/20 [History] atorvaSTATin Calcium [Lipitor] 40 mg PO DAILY 05/09/20 [History] Allopurinol [Zyloprim] 300 mg PO DAILY 09/29/20 [History] Aspirin [Halfprin] 81 mg PO DAILY 09/29/20 [History] Calcium Acetate 667 mg PO TID 09/29/20 [History] Cholecalciferol (Vitamin D3) [Vitamin D3] 1,000 intnl unit PO DAILY 09/29/20 [History] Diltiazem [Tiazac] 240 mg PO DAILY 09/29/20 [History] Docusate Sodium/Sennosides [Senokot-S] 100 mg PO BID 09/29/20 [History] Doxazosin [Cardura] 4 mg PO DAILY 09/29/20 [History] Ferrous Sulfate 65 mg PO BID 09/29/20 [History] Folic Acid 1 mg PO DAILY 09/29/20 [History] Furosemide [Lasix] 40 mg PO DAILY #30 tablet 09/29/20 [Rx] Lutein 6 mg PO DAILY 09/29/20 [History] Meclizine [Antivert] 25 mg PO TID #15 tab 09/29/20 [Rx] Metoprolol Succinate 50 mg PO DAILY 09/29/20 [History] Multivitamin,Therapeutic [Oncovite] 1 tab PO DAILY 09/29/20 [History] Sodium Bicarbonate 650 mg PO TID 09/29/20 [History] Thiamine HCl [Vitamin B-1] 100 mg PO DAILY 09/29/20 [History] Warfarin [Coumadin] 10 mg PO SUTUWETHSA 09/29/20 [History] Warfarin [Coumadin] 12.5 mg PO MOFR 09/29/20 [History] atorvaSTATin [Lipitor] 40 mg PO DAILY 09/29/20 [History] glipiZIDE [Glucotrol XL] 2.5 mg PO DAILY 09/29/20 [History] lisinopriL [Lisinopril] 5 mg PO DAILY 09/29/20 [History] Past Medical History HEENT History: Reports: Impaired Vision Cardiovascular History: Reports: Afib, Bypass, Heart Valve Replacement, High Cholesterol, Hypertension, SOB on Exertion Respiratory History: Reports: Sleep Apnea Genitourinary History: Reports: BPH Musculoskeletal History: Reports: Arthritis, Back Pain, Chronic, Osteoarthritis Endocrine/Metabolic History: Reports: Diabetes, Type II, Obesity/BMI 30+ Hematologic History: Reports: Anticoagulation Therapy, Blood Transfusion(s) Dermatologic History: Reports: Cellulitis - Past Surgical History Cardiovascular Surgical History: Reports: Coronary Artery Bypass, Valve Replacement Social & Family History - Tobacco Use Tobacco Use Status *Q: Never Tobacco User - Caffeine Use Caffeine Use: Reports: Coffee - Recreational Drug Use Recreational Drug Use: No - Living Situation & Occupation Living situation: Reports: Occupation: Retired Review of Systems - Review of Systems Review Of Systems: Comprehensive ROS is negative, except as noted in HPI. ED EXAM, GENERAL - Physical Exam Exam: See Below General Appearance: Alert, WD/WN, No Apparent Distress Respiratory/Chest: No Respiratory Distress, Lungs Clear, Normal Breath Sounds, No Accessory Muscle Use, Chest Non-Tender Cardiovascular: Normal Peripheral Pulses, Regular Rate, Rhythm, No Edema, No Gallop, No JVD, No Murmur, No Rub Extremities: Other (posterior dislocation of the middle phalynx of the right 4th finger at the PIP joint. CMS intact. 0.5 cm superficial laceration to the tip of the finger. Scant bleeding) Neurological: Alert, Oriented, CN II-XII Intact, Normal Cognition, Normal Gait, Normal Reflexes, No Motor/Sensory Deficits Psychiatric: Normal Affect, Normal Mood Skin Exam: Warm, Dry, Intact, Normal Color, No Rash ED TRAUMA EXTREMITY PROCEDURES - Joint Reduction right fourth finger PIP joint Sedation: Other (none. Pt had no pain, but was unable to bend the joint.) Pre-Procedure NV Status: Normal Post-Procedure NV Status: Normal Technique: Traction/Counter Traction Number of Attempts: 1 Post-Reduction Imaging: Completely Reduced, No Fracture Seen Joint Reduction Complications: No Course - Vital Signs Last Recorded V/S: Last Vital Signs Temp 97.2 F 10/01/20 16:07 Pulse 77 10/01/20 16:07 Resp 16 10/01/20 16:07 BP 187/90 H 10/01/20 16:07 Pulse Ox 92 L 10/01/20 16:07 - Orders/Labs/Meds Meds: Medications Discontinued Medications Generic Name Dose Route Start Last Admin Trade Name Freq PRN Reason Stop Dose Admin Diphtheria/Tetanus/Acell Pertussis 0.5 ml 10/01/20 16:37 10/01/20 17:14 Diphtheria,Pertussis(Acell),Tetanus Vaccine 0.5 Ml Syringe IM 10/01/20 16:38 0.5 ml .ONCE ONE Administration - Re-Assessments/Exams Free Text/Narrative Re-Assessment/Exam: Patient is a 75-year-old male presenting to the emergency department with complaints of inability to bend his right fourth finger after falling and hit his finger on a tree. On exam, he does appear to have a dislocation at the PIP joint. I have ordered x-ray. Also ordered Tdap to be given now. 10/01/20 16:45 X-ray of the left fourth finger revealed a posterior dislocation of the middle phalanx at the PIP joint. He is having no pain to the finger. I was able to easily reduce the joint with traction countertraction. He now has movement of the joint. I have ordered post reduction x-rays. 10/01/20 17:10 X-ray of the left fourth finger shows that the joint has been appropriately reduced. X-ray was reviewed with Dr. Bush. He feels they may be a small chip off the bone but no intervention other than splinting as needed. Patient has been placed in aluminum splint. Bacitracin and Band-Aid was applied to the superficial laceration to the tip of the finger. Recommend leaving the splint on for 12 days. He may remove it to shower. Discussed the swelling will be present for quite some time. Discharge instructions as documented. Departure - Departure Time of Disposition: 17:13 Disposition: Home, Self-Care 01 Condition: Good Clinical Impression: Finger dislocation Qualifiers: Encounter type: initial encounter Qualified Code(s): S63.259A - Unspecified dislocation of unspecified finger, initial encounter - Discharge Information *PRESCRIPTION DRUG MONITORING PROGRAM REVIEWED*: No *COPY OF PRESCRIPTION DRUG MONITORING REPORT IN PATIENT JAQUELINE: No Referrals: Tabatha Rivera MD [Primary Care Provider] - Forms: ED Department Discharge Additional Instructions: You were seen in the emergency department today for evaluation of injury to your right ring finger after jamming it up against a tree. X-rays show that she did have a dislocation of your PIP joint. This was easily reduced. You been placed in a splint. You should wear this for the next 12 days. At that time you may remove it. You will likely still have swelling to the joint for an extended period of time. You may ice over the joint intermittently for the next few d ays. Tylenol or ibuprofen as needed for discomfort. Wash the laceration at the to the finger twice daily with normal soap and water. Apply antibiotic ointment and Band-Aid once complete. Watch for signs of infection including increased redness, swelling, or purulent drainage. If these should occur, you should be evaluated in the clinic or the ER. Your tetanus vaccination was updated today so you are current for 10 years. Sepsis Event Note (ED) - Evaluation Sepsis Screening Result: No Definite Risk
--- NOTE | 2020-10-02 08:41 | CR ---
Right Fourth finger: 4 views of the right fourth finger were obtained. Comparison: No prior finger or hand exam is available. Dislocation is seen within the PIP joint of the fourth finger. Small bony densities are seen around this joint which could be old or represent minimal chip fractures. Osteopenia is noted. Diffuse soft tissue swelling is seen. Vascular calcification is noted. There is degenerative change noted within the third MCP joint. Impression: 1. Dislocation of the PIP joint. 2. Small bony densities around the PIP joint are seen which may be old or represent minimal chip fractures. 3. Soft tissue swelling and degenerative change. Diagnostic code #3
--- NOTE | 2020-10-02 09:24 | CR ---
Right finger: 3 views of the right fourth finger were obtained. Comparison: Prior finger study performed earlier on the same day. Previous dislocation within the PIP joint of the fourth finger is seen has been reduced. There is a small fracture being seen within the volar base of the middle phalanx of the fourth finger. Alignment is anatomic. Several small calcifications are seen which are stable. Soft tissue swelling is noted. Vascular calcification is again noted. Scattered degenerative change is noted which is stable. Impression: 1. Previous dislocation has been reduced. Very minimal fracture noted within the volar base of the middle phalanx of the fourth finger which is nondisplaced. 2. Other findings as noted above which are stable. Diagnostic code #3
== END 2020-10-01 17:25 | disposition home or self-care (01) ==
LOC: MERGE 15:57 → JD.ED 15:57
DX: S63.284A Dislocation of proximal interphalangeal joint of right ring finger, initial encounter (principal); I48.91 Unspecified atrial fibrillation; I10 Essential (primary) hypertension; N40.0 Benign prostatic hyperplasia without lower urinary tract symptoms; M19.90 Unspecified osteoarthritis, unspecified site; E78.00 Pure hypercholesterolemia, unspecified; Z88.8 Allergy status to other drugs, medicaments and biological substances; Z88.1 Allergy status to other antibiotic agents; Z23 Encounter for immunization; Z79.82 Long term (current) use of aspirin; Z79.01 Long term (current) use of anticoagulants; Z79.84 Long term (current) use of oral hypoglycemic drugs; Z95.1 Presence of aortocoronary bypass graft; Z79.899 Other long term (current) drug therapy; W01.10XA Fall on same level from slipping, tripping and stumbling with subsequent striking against unspecified object, initial encounter
CPT/HCPCS: 26755; 26770; 73140-26-F8; 73140-F8; 90471; 90715; 99283; 99283-25

== ENCOUNTER 2022-08-30 11:53 | Emergency (ER) | payer MEDICARE, BC ==
[2022-08-30] MEDS ORDERED: Albuterol 0.083% 2.5 MG/3 ML Neb Soln NEB ONE (12:25)
[2022-08-30 12:59] LABS: ESTIMATED GFR 39 mL/min (>60)
[2022-08-30 13:44] VITALS: BP 156/70; PULSE 60
== END 2022-08-30 14:00 | disposition home or self-care (01) ==
LOC: JD.ED 11:53
DX: I48.20 Chronic atrial fibrillation, unspecified (principal); I11.0 Hypertensive heart disease with heart failure; I50.9 Heart failure, unspecified; R77.8 Other specified abnormalities of plasma proteins; I48.91 Unspecified atrial fibrillation; M10.9 Gout, unspecified; E11.9 Type 2 diabetes mellitus without complications; N40.0 Benign prostatic hyperplasia without lower urinary tract symptoms; E66.9 Obesity, unspecified; Z68.39 Body mass index [BMI] 39.0-39.9, adult; Z86.16 Personal history of COVID-19; Z88.8 Allergy status to other drugs, medicaments and biological substances; Z79.01 Long term (current) use of anticoagulants
CPT/HCPCS: 36415; 71046; 71046-26; 80053; 83880; 84484; 85025; 85379; 86140; 93005; 93010; 94640; 99285; J7620-GY

== ENCOUNTER 2022-09-26 13:22 | Emergency (ER) | payer MEDICARE, BC ==
[2022-09-26] MEDS ORDERED: Furosemide 20 MG/2 ML VIAL IVPUSH ONE (16:18)
[2022-09-26 19:13] VITALS: BP 140/52; PULSE 70
== END 2022-09-26 19:00 ==
LOC: JD.ED 13:22
DX: D64.9 Anemia, unspecified (principal); R77.8 Other specified abnormalities of plasma proteins; N17.9 Acute kidney failure, unspecified; I45.10 Unspecified right bundle-branch block; I48.91 Unspecified atrial fibrillation; I25.10 Atherosclerotic heart disease of native coronary artery without angina pectoris; E78.00 Pure hypercholesterolemia, unspecified; I10 Essential (primary) hypertension; M19.90 Unspecified osteoarthritis, unspecified site; E11.9 Type 2 diabetes mellitus without complications; E66.9 Obesity, unspecified; Z68.38 Body mass index [BMI] 38.0-38.9, adult; Z86.16 Personal history of COVID-19; Z88.8 Allergy status to other drugs, medicaments and biological substances; Z79.01 Long term (current) use of anticoagulants; Z79.82 Long term (current) use of aspirin; Z79.84 Long term (current) use of oral hypoglycemic drugs; Z79.899 Other long term (current) drug therapy
CPT/HCPCS: 36415; 36430; 71046; 80053; 83880; 84484; 85025; 85610; 86850; 86900; 86901; 86922; 93005; 96374; 99285; J1940; P9016

== ENCOUNTER 2025-01-04 09:05 | Emergency (ER) | payer BC, MEDICARE ==
[2025-01-04 13:44] VITALS: BP 122/75; PULSE 55
== END 2025-01-04 11:22 | disposition home or self-care (01) ==
LOC: JD.ED 09:05
DX: S41.111A Laceration without foreign body of right upper arm, initial encounter (principal); S46.911A Strain of unspecified muscle, fascia and tendon at shoulder and upper arm level, right arm, initial encounter; S20.211A Contusion of right front wall of thorax, initial encounter; S50.11XA Contusion of right forearm, initial encounter; S40.011A Contusion of right shoulder, initial encounter; I10 Essential (primary) hypertension; E78.00 Pure hypercholesterolemia, unspecified; E66.9 Obesity, unspecified; E11.9 Type 2 diabetes mellitus without complications; Z88.8 Allergy status to other drugs, medicaments and biological substances; Z79.01 Long term (current) use of anticoagulants; Z79.82 Long term (current) use of aspirin; Z79.899 Other long term (current) drug therapy; Z86.16 Personal history of COVID-19; Z68.33 Body mass index [BMI] 33.0-33.9, adult; W01.198A Fall on same level from slipping, tripping and stumbling with subsequent striking against other object, initial encounter
CPT/HCPCS: 71045; 71045-26; 73030-26-RT; 73030-RT; 99284